=== PATIENT | female | born 1990 | race Caucasian/White ===

== ENCOUNTER 2021-01-23 09:31 | Outpatient (CLI) | payer OTHER, SELFPAY ==
--- NOTE | 2021-01-27 12:35 | WPDHOLTEREM ---
Holter/Event Monitor Holter/Event Monitor Date of procedure: 01/23/21 Holter/Event Procedure: 24 Hr Holter Monitor Indications: Irregular pulse Conclusion: 1. 24 hour holter monitor on 01/23/21. 2. Underlying rhythm is sinus rhythm. HR range 44-158 bpm; average HR 84 bpm. 3. There is 1 premature supraventricular complex. No supraventricular tachycardia. 4. No premature ventricular complex. No ventricular tachycardia. 5. No sinoatrial or atrioventricular blocks. No significant pauses greater than 2 seconds. 6. No symptoms available for correlation.
== END 2021-01-23 09:32 | disposition home or self-care (01) ==
LOC: ANHCARD 09:35
PROVIDERS: PCP Family Medicine; Visit Provider Nurse Practitioner Family
DX: R09.89 Other specified symptoms and signs involving the circulatory and respiratory systems (principal)
CPT/HCPCS: 93225; 93226

== ENCOUNTER 2024-02-20 00:30 | Day surgery (SDC) | payer OTHER, SELFPAY ==
[2024-02-09 14:13] VITALS: BMI 32.5
--- NOTE | 2024-02-09 14:25 | SUR.PREOP ---
Report to the Outpatient Waiting Room, entrance under the green pavilion located off [facility], at time 6:00a.m. on date 02/20/2024. Planned Procedure Time: 7:30a.m. Time changes happen often and if your time is changed the preop area will call you the afternoon before. - You and your visitor will be asked to self-screen and do not enter if you have any COVID symptoms. Please call surgeon if you need to reschedule. - A mask is optional within the hospital at this time. Patients may have clear liquids (water, carbonated beverages, clear teas, apple juice) until 3 hours prior to surgery with a maximum of 20 ounces. - No food from midnight until time of surgery and no smoking. This includes no chewing gum, candy or mints. - Infants may have breast milk until 4 hours before surgery, formula 6 hours prior to surgery. - Children will be allowed to drink immediately following surgery.? If applicable, please bring a bottle or sippy cup to assist with drinking. Juice, water, soda, and popsicles are readily available.? For infants on formula, please bring formula the day of surgery.? Pacifiers are allowed. Take only the following medications with a SIP of water on the morning of surgery: lamotrigine, buspirone, levothyroxine DO NOT STOP ANY OF YOUR OTHER PRESCRIPTION MEDICATIONS PRIOR TO SURGERY EXCEPT THE FOLLOWING Medications to discontinue per physician vitamins and supplements Date to take last dose 02/17/2024 Please no make-up, nail malaysian, hairspray, perfume, deodorant, or body powder the day of surgery.? No jewelry (including any body piercings) or valuables the day of surgery, leave them at home.? Please take a shower or bath the night before, or the morning of, surgery with an antibacterial soap.? Wear comfortable, loose fitting clothing.? Children are encouraged to wear pajamas. - Jewelry must be removed prior to entering the operating room.? Rings and piercings that are not removed may be cut off. - The hospital will not accept responsibility for valuables.? - Please leave all valuables, including medications, at home the day of surgery. If you are going home after surgery, a licensed intermodal truck driver must drive you home.? - NO public transportation without another adult if you receive anesthesia. - We recommend that an adult stay with you for 24 hours following discharge. - We also recommend that you do not drive, make important decision, drink alcoholic beverages, or take any drugs that were not prescribed by your health care provider for at least 24 hours after your discharge time. For Pediatric surgeries, we recommend two adults accompany the child home. Follow any additional instructions given to you from your surgeon. Telephone instructions given to Marilyn Peters and asked if any additional questions and then verbalized understanding. Patient advised to call surgeon office or pre surgery nurse liaison [phone] if any additional questions.
[2024-02-20] VITALS (8 sets, daily range): BP systolic 105–117; BP diastolic 66–76; PULSE 66–114; RESP 10–18; TEMP 36.1–36.2; O2SAT 98–100
[2024-02-20] MEDS: ACETAMINOPHEN 500 MG TABLET 1000 MG PO (06:30)
[2024-02-20] MEDS: LACTATED RINGERS 1,000 ML 30 ML IV CONT ×2 (06:30→08:15)
[2024-02-20] MEDS: KETOROLAC 15 MG/ML VIAL (*BKC) IV PUSH (06:30)
--- NOTE | 2024-02-20 06:34 | P.PNAN_ITS ---
Anes - Initial Pre Proc Eval Procedure: Operation Date: 02/20/24 07:30 Proposed Procedures p Laparoscopic Bilateral Salpingectomy - Judith Zambrano MD Date/Time: 02/20/24 06:34 Surgeon: Judith Zambrano MD Pre Op Diagnosis: Desire Sterilization Patient Data Age: 33 Gender: F Height: 1.63 m Weight: 86 kg Allergies Allergy/AdvReac Type Severity Reaction Status Date / Time heparin Allergy Unknown Unknown Verified 02/09/24 14:03 NSAIDS (Non-Steroidal Allergy Unknown Ulcers Verified 02/09/24 14:03 Anti-Inflamma Home Medications ?Medication ?Instructions ?Recorded ?Confirmed ?Type spironolactone 25 mg tablet 100 mg PO BID 12/23/20 02/09/24 History buspirone 5 mg tablet 10 mg PO BID 04/14/21 02/09/24 History lamotrigine 200 mg tablet 150 mg PO DAILY 05/04/23 02/09/24 History (Lamictal) levothyroxine 50 mcg tablet 75 mcg PO DAILY 05/04/23 02/09/24 History B12 1,000 mcg PO DAILY 02/09/24 02/09/24 History Calcium + Vitamin D 1,200 mg PO DAILY 02/09/24 02/09/24 History ESSENTIAL Daily 2 tablet PO DAILY 02/09/24 02/09/24 History atomoxetine 80 mg capsule 80 mg PO DAILY 02/09/24 02/09/24 History ergocalciferol (vitamin D2) 1,250 1,250 mcg PO DAILY 02/09/24 02/09/24 History mcg (50,000 unit) capsule solifenacin 10 mg tablet 10 mg PO DAILY 02/09/24 02/09/24 History Patient hx anesthesia problems: none Family hx anesthesia problems: none Results Review: All pre-operative results and documents have been reviewed as part of the pre- operative evaluation. ON LICENSE OF [facility] Past Medical History Medical History (Updated 02/20/24 @ 06:34 by Everardo Fuller DO) PCOS (polycystic ovarian syndrome) Hypothyroid Overactive bladder Bipolar 2 disorder Fatigue BMI 36.0-36.9,adult Low hemoglobin Low vitamin B12 level Low vitamin D level BMI 39.0-39.9,adult BMI greater than 40 Family History Family History Grandparent Hypertension Father Hepatitis C Mother Anxiety Cholecystectomy planned Sibling No problems noted. Other Diabetes mellitus Social History Social History (Updated 05/04/23 @ 10:38 by Radha Damon MA) Years smoked: 10 Smoking status: Former smoker Tobacco type: cigarettes Second hand tobacco smoke exposure: No Alcohol intake: former Substance use: former Substance use type: former substance user and amphetamines Last use: 02/08/2022 Do You Feel Safe in your Home?: Yes Lack of Transportation: No Lack of Food: Never True Current Housing: I Have Housing Concerned About Future Housing: No Difficulty Paying Gas/Electric Bills: No Difficulty Paying for Meds: No Currently Unemployed: No Education: Bachelor's Degree Difficulty w/ Childcare or Family Care: No Living arrangements: with family Occupation/Education: student 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[id number] Gender identity (if verbalized by the patient): Female Spiritual care concerns: No Anes - Eval Final PreProcedure Day of Procedure 02/20/24 06:34 Patient weight: obese Heart: regular rate and rhythm Lungs: clear to auscultation Airway: Mallampati scale class 1 Neurological: alert and oriented Last oral intake: >/= 8 hours ASA classification: III Emergent: no Anesthetic plan: proceed Anesthesia type and monitoring: general ETT and standard monitoring Results Review: All pre-operative results and documents have been reviewed as part of the pre- operative evaluation. Informed Consent: The patient's anesthetic plan and its attendant risks and benefits were discussed with the patient/family/POA. Questions were solicited and answers provided to the satisfaction of the patient/family/POA.
[2024-02-20] MEDS: SCOPOLAMINE 1 MG PATCH 1 PATCH TRANSDERM (07:09)
[2024-02-20 07:16] LABS: BEDSIDEPREGUCG Negative (Negative)
--- NOTE | 2024-02-20 07:19 | WPDHPUPDATE1 ---
History and Physical Update Update Date/Time: 02/20/24 07:19 History and Physical has been reviewed, including an updated exam of the patient. There are NO changes in the patient's condition. Risks, benefits, and alternatives have been discussed and questions answered. Patient agrees to proceed with procedure.
--- NOTE | 2024-02-20 07:19 | PM.HPGS ---
History of Present Illness History of Present Illness Consent: Risks, benefits, and alternatives have been discussed and questions answered. Patient agrees to proceed with procedure. Chief complaint: Desire Sterilization Narrative: Marilyn Peters is a 33 year old female who wishes to proceed with permanent sterilization. Patient has no desire for children and alternatives in the past have caused side effects. Risks of infection, bleeding injury to internal organs, and tubal failure were reviewed. Risk of ectopic if tubal failure occurs was reviewed. Patient voices understanding agrees to proceed. Plan to proceed with bilateral laparoscopic salpingectomy. Review of Systems Review of Systems: not repeated day of surgery; patient states no changes in status PMFSH Past Medical History Medical History (Updated 02/20/24 @ 07:22 by Judith Zambrano MD) PCOS (polycystic ovarian syndrome) Hypothyroid Overactive bladder Bipolar 2 disorder Low vitamin B12 level Low vitamin D level Surgical History Surgical History (Updated 02/20/24 @ 07:21 by Judith Zambrano MD) Status post breast augmentation Status post gastric bypass for obesity Family History Family History Grandparent Hypertension Father Hepatitis C Mother Anxiety Cholecystectomy planned Sibling No problems noted. Other Diabetes mellitus Social History Social History (Updated 05/04/23 @ 10:38 by Radha Damon MA) Years smoked: 10 Smoking status: Former smoker Tobacco type: cigarettes Second hand tobacco smoke exposure: No Alcohol intake: former Substance use: former Substance use type: former substance user and amphetamines Last use: 02/08/2022 Do You Feel Safe in your Home?: Yes Lack of Transportation: No Lack of Food: Never True Current Housing: I Have Housing Concerned About Future Housing: No Difficulty Paying Gas/Electric Bills: No Difficulty Paying for Meds: No Currently Unemployed: No Education: Bachelor's Degree Difficulty w/ Childcare or Family Care: No Living arrangements: with family Occupation/Education: student 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[id number] Gender identity (if verbalized by the patient): Female Spiritual care concerns: No Meds Home Medications and Allergies Home Medications ?Medication ?Instructions ?Recorded ?Confirmed ?Type spironolactone 25 mg tablet 100 mg PO BID 12/23/20 02/09/24 History buspirone 5 mg tablet 10 mg PO BID 04/14/21 02/20/24 History lamotrigine 200 mg tablet 150 mg PO DAILY 05/04/23 02/20/24 History (Lamictal) levothyroxine 50 mcg tablet 75 mcg PO DAILY 05/04/23 02/20/24 History B12 1,000 mcg PO DAILY 02/09/24 02/20/24 History Calcium + Vitamin D 1,200 mg PO DAILY 02/09/24 02/20/24 History ESSENTIAL Daily 2 tablet PO DAILY 02/09/24 02/20/24 History atomoxetine 80 mg capsule 80 mg PO DAILY 02/09/24 02/20/24 History ergocalciferol (vitamin D2) 1,250 1,250 mcg PO DAILY 02/09/24 02/20/24 History mcg (50,000 unit) capsule solifenacin 10 mg tablet 10 mg PO DAILY 02/09/24 02/20/24 History Allergies Allergy/AdvReac Type Severity Reaction Status Date / Time heparin Allergy Unknown Unknown Verified 02/20/24 07:11 NSAIDS (Non-Steroidal Allergy Unknown Ulcers,PT Verified 02/20/24 07:15 Anti-Inflamma HAS HX OF GASTRIC BYPASS Vital Signs Vital Signs - 24 hr 02/20/24 07:13 Temperature 96.9 F L Pulse Rate 66 Respiratory Rate 16 Blood Pressure 117/76 Pulse Oximetry 100 Oxygen Delivery Room Air Exam Const: General: healthy appearing and alert Orientation/consciousness: patient oriented x3 Resp: Effort & Inspection: normal respiratory effort : External Female Exam: normal external appearance Speculum Exam - Vagina: normal appearance of the vagina and normal vaginal discharge Speculum Exam - Cervix: normal appearance of the cervix Bimanual exam- vagina & uterus: uterine size normal and consistency normal Bimanual Exam- Adnexa, other: normal adnexae and No adnexal tenderness Neuro: General: patient oriented x3 Assessment and Plan Assessment and plan (1) Encounter for sterilization: Code(s): Z30.2 - Encounter for sterilization Status: Acute Assessment and Plan: plan to proceed with laparoscopic bilateral salpingectomy
--- NOTE | 2024-02-20 08:12 | P.OP_ITS ---
Procedure Note - Detailed Date of Procedure 02/20/24 Pre-op Diagnosis Desire Sterilization Post-op Diagnosis Same Procedure Performed laparoscopic bilateral salpingectomy Surgeon Judith Zambrano MD Anesthesia General Findings adhesions from the right tube to the uterus and the pelvic sidewall; normal-appearing tubes, ovaries, uterus otherwise Description of Procedure The patient is taken to the operating room and placed under anesthesia in the dorsal lithotomy position. She was prepped and draped in the usual sterile fashion. [place] speculum was placed in the vagina and the cervix grasped on the anterior lip with a tenaculum. The acorn manipulator was placed. The bladder was drained with a red rubber catheter. The attention was then turned to the abdomen. A vertical skin incision was made at the base of the umbilicus. The abdomen was tented and the Veress needle placed. Opening patient pressure is 8mmHg. Pneumoperitoneum was obtained to a patient pressure of 16. The short 5mm trocar was too short to reach the fascia. The long 5mm trocar was placed while tenting the abdomen with towel clamps. The patient was placed in Trendelenburg and 2 5mm ports were placed in the left and right lower quadrants 2cm above the symphysis pubis under direct visualization. The blunt probe was used to bring the tubes into visualization. The right tube was noted to be scarred. The left tube was grasped at its fimbriated end and using the LigaSure the mesosalpinx is cauterized and cut. Approximately 2cm from the cornua, the tube was crossclamped and cauterized and cut. The attention was then turned to the right tube. Adhesions are cauterized and cut. The fimbriated end is grasped and using the LigaSure the mesosalpinx was cauterized and cut. Approximately 2cm from the cornua, the tube was crossclamped, cauterized, and cut. The tubes are removed through the lower ports. Good hemostasis was noted at all sites. The pneumoperitoneum was reduced and the ports are all removed. The skin incisions were closed using 3-0 nylon in an interrupted fashion. Sterile bandages were applied. Vaginal instruments are removed. Patient was awakened from anesthesia and taken to recovery in stable condition. Estimated Blood Loss 5 Drains No Packing No Pathology Yes ( Bilateral tubes) Complications No immediate complications Condition Stable Disposition PACU
[2024-02-20] MEDS: fentaNYL CITRATE INJ (*CRX) 100 MCG/2 ML VIAL 25 MCG IV PUSH ×2 (08:38→08:41)
[2024-02-20] MEDS: oxyCODONE HCL (*CRX) 5 MG TAB IR PO (09:30)
--- OUTSIDE RECORDS SUMMARY | 2024-02-25 09:17 | XMS_ITS | Data Portability ---
Author Organization [place] [facility], MAIN OFFICE Address [address] [place] [address] [place] [address] Assessment No assessment recorded. Plan of Treatment Reminders Order Date Submit Date Provider Last Modified By Organization Details Last Modified Time Details Appointments None recorded. Lab TSH + free T4, serum 2022 023 [email or web address] [facility], [address], [place], [address], 3 19:24:[address]/dietiti an referral 2022 023 [email or web address] Not available 3 19:13:10 Procedures None recorded. Surgeries None recorded. Imaging MRI, pituitary, w/wo contrast 2022 023 [email or web address] Not available 3 22:37:39 Medication Orders Synthroid 75 mcg tablet 2022 023 [email or web address] [id number], [address] , [place], [address], 3 12:20:27 Patient TargetsNo targets recorded. Patient InstructionsNo instructions recorded. 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 Medications Name Sig Start Date Stop Date Status Note LastModified by Organization Details LastModified Time buspirone 5 mg tablet active Not Available Not Available Not Available lamotrigine 200 mg tablet active Not Available Not Available No t Available oxybutynin chloride ER 10 mg tablet,extended release 24 hr TAKE 1 TABLET BY MOUTH TWICE A DAY active Not Available Not Available No t Available spironolactone 100 mg tablet TAKE 1 TABLET BY MOUTH TWICE A DAY active Not Available Not Available No t Available sulfamethoxazol e 800 mg-trimethoprim 160 mg tablet TAKE 1 TABLET BY MOUTH TWICE A DAY FOR 7 DAYS active Not Available Not Available No t Available levothyroxine 50 mcg tablet TAKE 1 TABLET BY MOUTH EVERY DAY active Not Available Not Available No t Available Synthroid 75 mcg tablet Take 1 tablet every day by oral route. 2022 active Not Available Not Available Not Avai lable ergocalciferol (vitamin D2) 1,250 mcg (50,000 unit) capsule TAKE 1 CAPSULE BY MOUTH ONE TIME A WEEK active Not Available Not Available No t Available metformin ER 500 mg tablet,extended release 24 hr TAKE 2 TABLETS BY MOUTH TWICE A DAY active Not Available Not Available No t Available solifenacin 5 mg tablet TAKE 1 TABLET BY MOUTH EVERY DAY active Not Available Not Available No t Available Vitals None Recorded Social History None recorded. Functional Status None recorded. Mental Status None recorded. Family History Nothing Reported. Medical History No medical history recorded. Gynecological HistoryNo gynecological history recorded. Obstetrics History GPAL:G 0 P 0 0 0 0 Past Encounters Encounter ID Performer Location Encounter Start Date Encounter Closed Date Diagnosis/Indication Diagnosis SNOMED-CT Code Diagnosis ICD10 Code 1213 ANDREE SHANNON DO MAIN OFFICE [address] [place] [id number] 10/12/2022 08:51:05 10/18/2022 23:16:05 Hypothyroidism 18550015 E03.9 Hyperprolactinemia 09976 2004 E22.1 Reactive hypoglycemia 31 7006 E16.1 Health Concerns Section Related Observation LastModified by Organization Detai ls LastModified Time None Recorded Concern Status LastModified by Organization Details LastModified Time None Recorded Advance Directives Directive None Recorded Payers Encounter Date Sequence Insurance Name Policy Number Policy Tejeda Covered Member ID Tejeda Member ID Guarantor Name 10/12/2022 1 *SELF PAY* Josafat Peters Notes Date Note Type Note Provider Name and Address Organization Details Recorded Time 10/13/19 23 text/htm l Patient is a 32 year old F who presents second opinion regarding Endocrine labs Prolactin and TSH was elevated recently and wants to discuss these for a second opinion. She has been diagnosed with hypothyroidism x several years. She is on Synthroid and takes it on an empty stomach and waits 30 minutes She quit smoking 7 months ago. She does not drink ETOH.She is trying to work out, however the last 3 months- her energy level is going down. Gastric Bypass in 2012. 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 When she gets her hypoglycemia she gets shaky and then she eats chocolate and feels better. October T4 was normalTSH 6.95Prolactin 33.5 She does have nipple discharge and headaches.She is not breast feeding or recent child . No history of . Menstrual cycles: irregular the last few months (prior to that her cycles are regular)She gained 10 lbs, since she quit smoking and she switched to plan based diet.Hair loss Medications:Synthroid 50 mcgLamictal 200 mg x 10 yearsBuspar 5 mg BID x 2 yearsMetformin 500 mg BID for preDMSpironolactoneOxybutynin - recently discharged, switched Solifenacine Fam history: aunt- thyroid Surgical historyGastric Bypass 2012 ANDREE SHANNON, [address], [place], [address], [place] [facility] 10/18/2022 12:23:19 OBGyn Episode No OBEpisode recorded.
--- OUTSIDE RECORDS SUMMARY | 2024-02-25 09:17 | XMS_ITS | Referral Summary ---
Author Organization [facility] Address [address] [place] [address] Care Team Providers Care Huller Operator Name Role Phone Leo Contreras MD Primary Care Provider [phone] Source Comments [facility] Affiliates and Associated Physician Practices is amultiple site organization consisting of ambulatory clinics and hospital sitesin [place], [place], [place] and [place]. This disclosure is being madepursuant to the Care Everywhere program and may not contain all information available regarding this patient. Last updated 17.[facility] Allergies Active Allergy Reactions Criticality Noted Date Comments Heparin Shortness of Breath High 12/25/2017 Medications * Be aware that medications may not be up to date on this document. Alwaysverify current medications with the patient. Medication Sig Dispensed Refills Start Date End Date Status lamoTRIgine (LAMICTAL) 100 MG tablet Take 100 mg by mouth once daily Active levothyroxine (SYNTHROID) 25 MCG tablet Take 25 mcg by mouth daily before breakfast Active amphetamine-dextroamp hetamine (ADDERALL) 20 MG tablet Take 20 mg by mouth every morning Active traZODone (DESYREL) 50 MG tablet Take 50 mg by mouth at bedtime Active ketorolac 0.5% (ACULAR) 0.5 % ophthalmic solution 1 drop 4 times daily as needed 5 mL 12/25/2017 Active Social History Tobacco Use Types Packs/Day Years Used Date Smoking Tobacco: Never Assessed Sex and Gender Information Value Date Recorded Sex Assigned at Not on file Gender Identity Not on file Sexual Orientation Not on file Last Filed Vital Signs Vital Sign Reading Time Taken Comments Blood Pressure 131/73 12/25/2017 7:32 AM CDT Pulse 65 12/25/2017 7:32 AM CDT Temperature 36.7 ??C (98.1 ??F) 12/25/2017 7:32 AM CD T Respiratory Rate 18 12/25/2017 7:32 AM CDT Oxygen Saturation 98% 12/25/2017 7:32 AM CDT Inhaled Oxygen Concentration - - Weight 90.7 kg (200 lb) 12/25/2017 6:34 AM CDT Height 162.6 cm (5' 4 ) 12/25/2017 6:34 AM CDT Body Mass Index 34.33 12/25/2017 6:34 AM CDT Plan of Treatment Not on file Care Teams Huller Operator Relationship Specialty Start Date End Date Leo Contreras MD [address] [place] [address] PCP - General Family Medicine 12/25/17
--- OUTSIDE RECORDS SUMMARY | 2024-02-25 09:17 | XMS_ITS | Encounter Summary ---
Author Organization [facility] Address [address] [place] [address] Care Team Providers Care Freight Elevator Erector Name Role Phone Leo Contreras MD Primary Care Provider [phone] Reason for Visit * Reason Comments Pain Eye left eye pain since she took her contacts out last night, burning after contact removal and pain worsening through the night Encounter Details Date Type Department Care Team (Late st Contact Info) Description 12/25/2017 6:36 AM CDT - 12/25/2017 7:44 AM CDT [facility] [address] [place] [id number] Ismael Chowdhury MD [address] [place] [address] Corneal abrasion of left eye due to contact lens Discharge Disposition: Home or Self Care Social History Tobacco Use Types Packs/Day Years Used Date Smoking Tobacco: Never Assessed Sex and Gender Information Value Date Recorded Sex Assigned at Not on file Gender Identity Not on file Sexual Orientation Not on file documented as of this encounter Last Filed Vital Signs Vital Sign Reading [...] Mass Index 34.33 12/25/2017 6:34 AM CDT documented in this encounter Discharge Instructions * Discharge Instructions* Ismael Chowdhury MD - 12/25/2017 7:34 AM CDT Images from the original note were not included. Corneal Abrasion WHAT YOU NEED TO KNOW: A corneal abrasion is a scratch on the cornea of your eye. The cornea is the clear layer that covers the front of your eye. A small scratch may heal in 1 to 2 days. Deeper or larger scratches may take longer to heal. DISCHARGE INSTRUCTIONS: Call your healthcare provider or business dean if: ?? Your eye pain or vision gets worse. ?? You have yellow or green drainage from your eye. ?? You have questions or concerns about your condition or care. Medicines: ?? Medicines may be given in the form of eyedrops or ointment to help prevent an eye infection. Youmay also be given eyedrops to decrease pain. ?? Take your medicine as directed. Contact your healthcare provider if you think your medicine is not helping or if you have side effects. Tell him or her if you are allergic to any medicine. Keep a list of the medicines, vitamins, and herbs you take. Include the amounts, and when and why you take them. Bring the list or the pill bottles to follow-up visits. Carry your medicine list with you in case of an emergency. Care for your eyes: ?? Get regular eye exams. Get your eyes checked at least every year. ?? Eat healthy foods. Fresh fruits and vegetables that are rich in vitamins A and C may help with your vision. Foods such as sweet potatoes, apricots, and carrots are rich in good nutrients for the eyes. ?? Take care of your contacts or glasses. Store, clean, and use your contacts or glasses as directed. Replace your glasses or contact lenses as often as your healthcare provider suggests. ?? Decrease eye strain. Rest your eyes, especially after you read or sew for long periods of time. Get plenty of sleep at night. Use lights that reduce glare in your home, school, or workplace. ?? Wear dark sunglasses. This will help prevent pain and light sensitivity. Make sure the sunglasses have UVA and UVB protection. This will protect your eyes when you go outside. ?? Use eyedrops safely. If your treatment plan includes eyedrops, it is important to use them as directed. Your provider may give you detailed instructions to follow. The eyedrops may also come with safety instructions. Follow all instructions to help prevent an infection. Do not touch the tip of th e bottle to your eye. Germs from your eye can spread to the medicine bottle. Help prevent corneal abrasions: ?? Remove your contact lenses if your eyes feel dry or irritated. ?? Wash your hands if you need to touch your eyes or your face. ?? Trim your child's fingernails so he or she cannot scratch his or her eye. ?? Wear protective eyewear when you work with chemicals, wood, dust, or metal. ?? Wear protective eyewear when you play sports. ?? Do not wear your contacts for longer than you should. ?? Do not wear colored lenses or lenses with shapes on them. These lenses may cause eye damage and vision loss. ?? Do not wear glitter makeup. Glitter can easily get into your eyes and under contact lenses. ?? Do not sleep with your contacts in. Follow up with your healthcare provider as directed: Write down your questions so you remember to ask them during your visits. ?? Copyright [employer] 2017 Information is for End User's use only and may not be sold, redistributed or otherwise used for commercial purposes. All illustrations and images included in CareNotes?? are the copyrighted property of [employer] or [employer] The above information is an special education educational assistant only. It is not intended as medical advice for individual conditions or treatments. Talk to your doctor, nurse or pharmacist before following any medical regimen to see if it is safe and effective for you. documented in this encounter Medications at Time of Discharge Medication Sig Dispensed Refills Start Date End Date amphetamine-dextroamphe tamine (ADDERALL) 20 MG tablet Take 20 mg by mouth every morning ketorolac 0.5% (ACULAR) 0.5 % ophthalmic solution 1 drop 4 times daily as needed 5 mL 12/25/2017 lamoTRIgine (LAMICTAL) 100 MG tablet Take 100 mg by mouth once daily levothyroxine (SYNTHROID) 25 MCG tablet Take 25 mcg by mouth daily before breakfast traZODone (DESYREL) 50 MG tablet Take 50 mg by mouth at bedtime ciprofloxacin 0.3% (CILOXAN) 0.3 % ophthalmic solution 1 drop every 4 hours while awake for 12 doses 5 mL 12/25/2017 12/28/2017 documented as of this encounter ED Notes * Jeannette Middleton RN - 12/25/2017 7:43 AM CDT Pt verbalized understanding of discharge instructions and prescriptions. note provided to pt. Ptambulated from ED with all personal belongings. * Jeannette Middleton RN - 12/25/2017 7:31 AM CDT at bedside. * Jeannette Middleton RN - 12/25/2017 7:11 AM CDT Pt report received from ELIGIO Brewer. * Ismael Chowdhury MD - 12/25/2017 7:01 AM CDTAssociated Order(s): ED GENERAL PROCEDURE Provider contact with the patient: 12/25/2017 07:01 Marilyn Peters [id number] [facility] EMERGENCY DEPARTMENT History Chief Complaint Patient presents with ??? Pain Eye left eye pain since she took her contacts out last night, burning after contact removal and pain worsening through the night HPI Comments: Marilyn Peters is a 27 y.o.female presenting to the ED complaining of left eye painthat began at 11 PM. She notes at the time she took out her contact and does not know if she scratched it or if her contacts were too dry and took something off my eye . Eye Problem Location: Left eye Quality: Sharp Severity: Mild Onset quality: Sudden Timing: Constant Progression: Unchanged Chronicity: New Relieved by: Nothing Ineffective treatments: None tried No past medical history on file. No past surgical history on file. No family history on file. Social History Social History ??? Marital status: Spouse name: N/A ??? Number of children: N/A ??? Years of education: N/A Occupational History ??? Not on file. Social History Main Topics ??? Smoking status: Not on file ??? Smokeless tobacco: Not on file ??? Alcohol use Not on file ??? Drug use: Not on file ??? Sexual activity: Not on file Other Topics Concern ??? Not on file Social History Narrative ??? No narrative on file Allergies Allergen Reactions ??? Heparin Shortness of Breath Review of Systems Review of Systems Constitutional: Negative. HENT: Negative. Eyes: Positive for pain (left). Respiratory: Negative. Cardiovascular: Negative. Gastrointestinal: Negative. Genitourinary: Negative. Musculoskeletal: Negative. Skin: Negative. Neurological: Negative. Endo/Heme/Allergies: Negative. Psychiatric/Behavioral: Negative. Physical Exam Ht 1.626 m (5' 4 ) Wt 90.7 kg (200 lb) LMP 12/12/2017 (Exact Date) BMI 34.33 kg/m2 Physical Exam Constitutional: She is oriented to person, place, and time. She appears well- developed and well-nourished. No distress. HENT: Head: Normocephalic and atraumatic. Right Ear: External ear normal. Left Ear: External ear normal. Nose: Nose normal. Mouth/Throat: Oropharynx is clear and moist. Eyes: EOM are normal. Pupils are equal, round, and reactive to light. Right eye exhibits no discharge. Left eye exhibits discharge (clear). Left conjunctiva is injected. No scleral icterus. Right eyeexhibits normal extraocular motion and no nystagmus. Left eye exhibits normal extraocular motion and no nystagmus. No nystagmus. Neck: Trachea normal, normal range of motion, full passive range of motion without pain and phonation normal. Neck supple. Normal carotid pulses, no hepatojugular reflux and no JVD present. No tracheal tenderness present. Carotid bruit is not present. No tracheal deviation present. Cardiovascular: Normal rate, regular rhythm, S1 normal, S2 normal, normal heart sounds and intact distal pulses. Exam reveals no gallop, no S3, no S4 and no friction rub. Pulses: Dorsalis pedis pulses are 2+ on the right side, and 2+ on the left side. Posterior tibial pulses are 2+ on the right side, and 2+ on the left side. Pulmonary/Chest: Effort normal and breath sounds normal. No stridor. No respiratory distress. Abdominal: Soft. Bowel sounds are normal. She exhibits no distension, no pulsatile liver, no abdominal bruit and no pulsatile midline mass. There is no hepatosplenomegaly or splenomegaly. There is notenderness. There is no rigidity and no CVA tenderness. Hernia confirmed negative in the ventral area. No pulsatile mass. Musculoskeletal: Normal range of motion. She exhibits no edema or tenderness. Neurological: She is alert and oriented to person, place, and time. She has normal strength and normal reflexes. She displays no atrophy, no tremor and normal reflexes. No cranial nerve deficit or sensory deficit. She exhibits normal muscle tone. She displays no seizure activity. Coordination normal. GCS eye subscore is 4. GCS verbal subscore is 5. GCS motor subscore is 6. She displays no Babinski's sign on the right side. She displays no Babinski's sign on the left side. Skin: Skin is warm and dry. No rash noted. She is not diaphoretic. Psychiatric: She has a normal mood and affect. Her behavior is normal. Nursing note and vitals reviewed. Medications Current Outpatient Prescriptions Medication Sig Dispense Refill ??? lamoTRIgine (LAMICTAL) 100 MG tablet Take 100 mg by mouth once daily ??? levothyroxine (SYNTHROID) 25 MCG tablet Take 25 mcg by mouth daily before breakfast ??? amphetamine-dextroamphetamine (ADDERALL) 20 MG tablet Take 20 mg by mouth every morning ??? traZODone (DESYREL) 50 MG tablet Take 50 mg by mouth at bedtime ??? ciprofloxacin 0.3% (CILOXAN) 0.3 % ophthalmic solution 1 drop every 4 hours while awake for 12 doses 5 mL 0 ??? ketorolac 0.5% (ACULAR) 0.5 % ophthalmic solution 1 drop 4 times daily as needed 5 mL 0 Procedures General Procedure Date/Time: 12/25/2017 7:33 AM Performed by: ISMAEL CHOWDHURY Authorized by: ISMAEL CHOWDHURY Consent: Consent obtained: Verbal Consent given by: Patient Risks discussed: Infection Alternatives discussed: No treatment Post-procedure details: Patient tolerance of procedure: Tolerated well, no immediate complications Comments: Anesthestized patient's left eye with tetracaine. Stained eye with fluorescein. Fluorescein uptake at 1 o'clock. ECG Interpretation ECG Interpretation Lab Interpretation Oxygen Saturation Interpretation The oxygen saturation level is: 98%. The patient was on Room Air for the saturation measurement. Oxygen saturation interpretation is Normal. Intervention(s) used: None. No results found for this visit on 12/25/17. No orders to display Progress Notes 7:01 AM Initial Plan: Patient will be given tetracaine. Patient agrees with plan. 7:32 AM: Further examined patient's eye as documented in procedures. 7:36 AM Rechecked pt -patient resting comfortably and feeling better. I discussed the results of diagnostic studies, my clinical impression, and the plan for further treatment with the patient. Patient agrees with plan and discharge at this time, all questions addressed. Pt is medically stable for discharge at this time. I have given the patient instructions regarding her diagnosis, expectations, follow up, and return precautions. I explained to the patient that emergent conditions may arise and to return to the ER for new, worsening, or any persistent conditions. I've explained the importance of following up with her Primary Care Physician-(or the referral physician listed below) as instructed. The patient verbalized understanding of the discharge instructions. Discharge Vitals: BP 131/73 Pulse 65 Temp 98.1 ??F (36.7 ??C) Resp 18 Ht 1.626 m (5' 4 ) Wt 90.7 kg(200 lb) SpO2 98% BMI 34.33 kg/m2 ED Course ED Course Medical Decision Making I have reviewed the: Previous Chart, Nursing Notes, Vitals. I have interpreted the following results: Oxygen Saturation. MDM: corneal abrasion to left eye with secondary conjunctivitis from contact use. Told not to use contacts. Use cipro eye drops every 4 hours and follow up with eye doctor. RTED if worsening. Orders Placed This Encounter ??? ED GENERAL PROCEDURE ??? DISCONTD: tetracaine 0.5% 0.5 % ophthalmic solution 2 drop ??? ciprofloxacin 0.3% (CILOXAN) 0.3 % ophthalmic solution ??? ketorolac 0.5% (ACULAR) 0.5 % ophthalmic solution ??? DISCONTD: fluorescein (FLUORETS; [id number]) ophthalmic strip ADS Med ??? DISCONTD: fluorescein (FLUORETS; [id number]) ophthalmic strip 1 strip Clinical Impression Final diagnoses: Corneal abrasion of left eye due to contact lens New Medications: Discharge Medication List as of 12/25/2017 7:35 AM START taking these medications Details ciprofloxacin 0.3% (CILOXAN) 0.3 % ophthalmic solution Disp-5 mL, R-0, 1 drop every 4 hours while awake for 12 doses, Print ketorolac 0.5% (ACULAR) 0.5 % ophthalmic solution Disp-5 mL, R-0, 1 drop 4 times daily as needed, Print I have advised the patient to follow-up with: Cuca Degroot MD [address] [address] Disposition: Discharged By signing my name below, I, Aminata Welch, attest that this documentation has been prepared under the direction and in the presence of Dr. Chowdhury. Electronically Signed: Shahriar Michael. 12/25/2017 1:48 PM I, Dr. Chowdhury, personally performed the services described in this documentation. All medical record entries made by the scribe were at my direction and in my presence. I have reviewed the chart and discharge instructions and agree that the record reflects my personal performance and is accurate and complete. , 12/25/2017 1:48 PM * Osman Giordano RN - 12/25/2017 6:46 AM CDT Pt presents with left eye pain since last night. Will continue to monitor documented in this encounter Plan of Treatment Not on file documented as of this encounter Procedures Procedure Name Priority Date/Time Associated Diagnosis Comments ED GENERAL PROCEDURE Routine 12/25/2017 1:48 PM CDT documented in this encounter Results * ED GENERAL PROCEDURE (12/25/2017 1:48 PM CDT) Narrative Ismael Chowdhury MD - 12/25/2017 1:48 PM CDT Ismael Chowdhury MD ? 12/25/2017 ??1:48 PM General Procedure Date/Time: 12/25/2017 7:33 AM Performed by: ISMALE CHOWDHURY Authorized by: ISMAEL CHOWDHURY Consent: ??Consent obtained: ??Verbal ??Consent given by: ??Patient ??Risks discussed: ??Infection ??Alternatives discussed: ??No treatment Post-procedure details: ??Patient tolerance of procedure: ??Tolerated well, no immediate complications Comments: ?? Anesthestized patient's left eye with tetracaine. Stained eye with fluorescein. Fluorescein uptake at 1 o'clock. Ismael Chowdhury MD PROCEDURE/MINOR SURYA GICAL ORDERABLES documented in this encounter Visit Diagnoses Diagnosis Corneal abrasion of left eye due to contact lens documented in this encounter Administered Medications Inactive Administered Medications - up to 3 most recent administrations Medication Order MAR Action Action Date Dose Rate Site fluorescein (FLUORETS; [id number]) ophthalmic strip 1 strip 1 strip, Each Eye, ONCE, 1 dose, On 12/25/17 at 0800 documented in this encounter Active and Recently Administered Medications Times are shown in CDT. Scheduled Medication Order 12/23/2017 12/24/2017 12/25/2017 fluorescein (FLUORETS; [id number]) ophthalmic strip 1 strip 1 strip, Each Eye, ONCE, 1 dose, On 12/25/17 at 0800 tetracaine 0.5% 0.5 % ophthalmic solution 2 drop 2 drop, Left Eye, ONCE, 1 dose, On 12/25/17 at 0730 0730 (Due) documented in this encounter Care Teams Freight Elevator Erector Relationship Specialty Start Date End Date Leo Contreras MD [address] [place] [address] PCP - General Family Medicine 12/25/17 documented as of this encounter
--- OUTSIDE RECORDS SUMMARY | 2024-02-25 09:17 | XMS_ITS | Clinical Summary ---
Author Organization [facility] Utility Funding Address [address] [place] [address] Care Team Providers Care Digital Strategy Specialist Name Role Phone Leo Contreras MD Primary Care Provider [phone] Source Comments [facility] Affiliates and Associated Physician Practices is amultiple site organization consisting of ambulatory clinics and hospital sitesin [place], [place], [place] and [place]. This disclosure is being madepursuant to the Care Everywhere program and may not contain all information available regarding this patient. Last updated 17.[facility] Utility Funding Allergies Active Allergy Reactions Criticality Noted Date [...] 12/25/2017 6:34 AM CDT Plan of Treatment Health Maintenance Due Date Last Done Comments PAP SMEAR 1992 HIV SCREENING 02/20/2007 HEPATITIS C SCREENING 02/16/2010 DTAP/TDAP/TD VACCINES (1 - Tdap) 02/20/2011 HEPATITIS B VACCINE (1 of 3 - 19+ 3-dose series) 02/20/2011 DEPRESSION SCREENING 03/07/2023 COVID-19 VACCINE (1 - 2023-2 5 season) 2023 INFLUENZA VACCINE (#1) 2023 ZOSTER VACCINE (1 of 2) 02/20/2042 HIB VACCINE Aged Out No longer eligi ble based on patient's age to complete this topic HPV VACCINE Aged Out No longer eligi ble based on patient's age to complete this topic MENINGOCOCCAL VACCINE Aged Out No jamila padmaja eligible based on patient's age to complete this topic PNEUMOCOCCAL VACCINE Aged Out No long er eligible based on patient's age to complete this topic Care Teams Digital Strategy Specialist Relationship Specialty Start Date End Date Leo Contreras MD [address] [place] [address] PCP - General Family Medicine 12/25/17
--- OUTSIDE RECORDS SUMMARY | 2024-02-25 09:17 | XMS_ITS | Patient Health Summary ---
Author Organization [facility] Address [address] [place] [address] Care Team Providers Care Water Quality Assistant Name Role Phone Leo Contreras MD Primary Care Provider Note from [facility],non-owned Affiliates and Associated Physician Practices is amultiple site organization consisting of ambulatory clinics and hospital sitesin [place], [place], [place] and [place]. This disclosure is being madepursuant to the Care Everywhere program and may not contain all information available regarding this patient. Last updated 17.[facility] Allergies * Heparin(Shortness of Breath) -High Criticality Medications * Be aware that medications may not be up to date on this document. Alwaysverify current medications with the patient. * lamoTRIgine (LAMICTAL) 100 MG tablet Take 100 mg by mouth once daily * levothyroxine (SYNTHROID) 25 MCG tablet Take 25 mcg by mouth daily before breakfast * amphetamine-dextroamphetamine (ADDERALL) 20 MG tablet Take 20 mg by mouth every morning * traZODone (DESYREL) 50 MG tablet Take 50 mg by mouth at bedtime * ketorolac 0.5% (ACULAR) 0.5 % ophthalmic solution(Started 12/25/2017) 1 drop 4 times daily as needed Social History Tobacco Use Types Packs/Day Years [...] Mass Index 34.33 12/25/2017 6:34 AM CDT Procedures * ED GENERAL PROCEDURE(Performed 12/25/2017) Results * ED GENERAL PROCEDURE (12/25/2017 1:48 PM CDT) Narrative Ismael Chowdhury MD - 12/25/2017 1:48 PM CDT Ismael Chowdhury MD ? 12/25/2017 ??1:48 PM General Procedure Date/Time: 12/25/2017 7:33 AM Performed by: ISMAEL CHOWDHURY Authorized by: ISMAEL CHOWDHURY Consent: ??Consent obtained: ??Verbal ??Consent given by: ??Patient ??Risks discussed: ??Infection ??Alternatives discussed: ??No treatment Post-procedure details: ??Patient tolerance of procedure: ??Tolerated well, no immediate complications Comments: ?? Anesthestized patient's left eye with tetracaine. Stained eye with fluorescein. Fluorescein uptake at 1 o'clock. Ismael Chowdhury MD PROCEDURE/MINOR SURYA GICAL ORDERABLES Care Teams Water Quality Assistant Relationship Specialty Start Date End Date Leo Contreras MD [address] [place] [address] PCP - General Family Medicine 12/25/17
--- OUTSIDE RECORDS SUMMARY | 2024-02-25 09:18 | XMS_ITS | Clinical Summary ---
Author Organization [facility] [address] Address [address] [place] [address] Care Team Providers Care Pipe Fitter Name Role Phone Fly Cheema MD Primary Care Provider Allergies No known active allergies Medications metFORMIN (GLUCOPHAGE) 500 mg tablet Take 1 tablet (500 mg total) by mouth daily with breakfast Active lamoTRIgine (LaMICtal) 200 mg tablet Take 1 tablet (200 mg total) by mouth daily Active busPIRone (BUSPAR) 5 mg tabletIndicatio ns:Generalized Anxiety Disorder Take 1 tablet (5 mg total) by mouth 2 (two) times a day Active spironolactone (ALDACTONE) 100 mg tablet Take 1 tablet (100 mg total) by mouth 2 (two) times a day Active solifenacin (VESIcare) 5 mg tablet Take 1 tablet (5 mg total) by mouth daily Active levothyroxine (SYNTHROID) 75 mcg tablet Take 1 tablet (75 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 She has irregular periods, which may be a manifestation of this, but does not have galactorrhea. Ultimately, I believe that the hypothyroidism with high TSH is the cause of this mild prolactin elevation. Repeat prolactin and TFT's. Hold off on pituitary MRI for now. Further workup to follow if prolactin remains elevated. Other specified hypothyroidism 11/02/2022 Assessment & Plan (11/02/2022 10:27 AM CDT): TSH elevated at last check, so dose of levothyroxine was appropriately increased to 75 mcg daily. Repeat TFT's 4-6 weeks after dose adjustment. PCOS (polycystic ovarian syndrome) 11/02/2022 Assessment & Plan (11/02/2022 10:26 AM CDT): Well managed by [employer] with metformin for metabolic health and spironolactone for hirsutism. She previously did not tolerate hormonal control. Surgical History Surgery Date Site/Laterality Comments COMBINED AUGMENTATION MAMMAPLASTY AND ABDOMINOPLASTY 2013 GASTRIC BYPASS 2012 Medical History Medical History Date Comments Personal history of other en docrine, nutritional and metabolic disease History of thyroid d isease - (Added by TW Conv) Family History Medical History Relation Name Comments Anesthesia problems Other Adverse Reaction To Anesthesia - Aunt (Added by TW Conv) Cancer Other Reported Family History Of Cancer - PGM, PGF (Added by TW Conv) Diabetes Other Diabetes Mellit us - Grandmother, Grandfather, Aunt (Added by TW Conv) Heart disease Other Heart Disease - Grandfather (Added by TW Conv) Hypertension Other Reported Previo us High Blood Pressure - Grandmother, Grandfather, 2 Aunts (Added by TW Conv) Obesity Other Obesity - Aunt, Grandmother (Added by TW Conv) Other Other Blood Disorders - Aunt (Added by TW Conv) Ovarian cancer Other Ovarian Cance r - aunt (Added by TW Conv) Polycystic ovary syndrome Other Po lycystic Ovarian Syndrome - Aunt (Added by TW Conv) Premature Menopause Other Prematur e Menopause - Aunt (Added by TW Conv) Thyroid disease Other Thyroid Diso rder - Aunt (Added by TW Conv) Relation Name Status Comments Other Social History Tobacco Use Types Packs/Day Years Used Date Smoking Tobacco: Former Cigarettes 0.8 15 0 05/22/2009 - 03/12/2022 Smokeless Tobacco: Never Tobacco Cessation:Counseling Given: No Comments Unknown Sex and Gender Information Value Date Recorded Sex Assigned at Not on file 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 Gender Identity Not on file Sexual Orientation Not on file Obstetrics History Last Filed Vital Signs Vital Sign Reading Time Taken Comments Blood Pressure 128/86 11/02/2022 9:46 AM CDT Pulse 69 11/02/2022 9:46 AM CDT Temperature - - Respiratory Rate - - Oxygen Saturation 95% 08/03/2014 7:51 AM CDT Inhaled Oxygen Concentration - - Weight 88.6 kg (195 lb 6.4 oz) 11/02/2022 9:46 A M CDT Height 162.6 cm (5' 4 ) 11/02/2022 9:46 AM CDT Body Mass Index 33.54 11/02/2022 9:46 AM CDT Plan of Treatment Health Maintenance Due Date Last Done Comments Cervical Cancer Screening 1992 Depression Screening 1992 Hepatitis C Screening 1992 Varicella Vaccines (1 of 2 - 13+ 2-dose series) 02/20/2005 Hepatitis B Screening 02/20/2010 Regular Well Visit/Exam 18-64 02/20/2010 Covid-19 Vaccine (2023-2 5 season) 2023 02/03/2021, 06/04/2020, 05/06/2020 Influenza Vaccine (#1) 2023 11/17/2020 DTaP/Tdap/Td Vaccine (2 - Td or Tdap) 11/20/2030 11/20/2020 HPV Vaccines Aged Out No longer eligi ble based on patient's age to complete this topic Pneumococcal vaccine <65 Aged Out No longer eligible based on patient's age to complete this topic [facility] Care Teams Pipe Fitter Relationship Specialty Start Date End Date Fly Cheema MD [address] [facility] [address] [address] PCP - General Endocrinology Diabetes & Metabolism 11/02/22
--- OUTSIDE RECORDS SUMMARY | 2024-02-25 09:18 | XMS_ITS ---
Author Organization [facility] [employer] Address [address] [facility] [address] [place] [address] Care Team Providers Care Communications Field Technician Name Role Phone Ben DEL REAL, Leo Primary Care Provider Neal Fletcher Unavailable [phone] Allergies No Known Allergies REASON FOR VISIT last seen 07.08.23, MIPS BP NORMAL, Depression screening positive Medications Medication SIG (Take, Route, Frequency, Duration) Notes Start Date End Date Status SOLIFENACIN 10 MG TABLET *Reorder from [email or web address] for eRx and Interaction Alerts* 07/08/2023 Active Synthroid 75 MCG Oral 07/08/2023 Ac tive Spironolactone 100 MG Oral 07/08/2023 Active busPIRone HCl 10 MG 1 tablet Oral three times a day for 90 days Active Atomoxetine HCl 10 MG 1 capsule Orally once a day for 90 days total dose of 70 mg daily total dose of 70 mg daily 02/17/2024 08/15/2024 Active Atomoxetine HCl 60 MG 1 capsule in the morning Orally Once a day for 90 days total dose of 70 mg daily total dose of 70 mg daily 01/25/2024 08/15/2024 Active lamoTRIgine 100 MG 1 tablet Oral Once a day for 90 days 07/08/2023 Active Social History Tobacco Use: Social History Observation Description Date Details (start date - stop date) Former Smoker 03/07/2010 - 03/07/2022 Sex Assigned At : Social History Observation Description Sex Assigned At Female Tobacco Control (Standard) Question Answer Notes Tobacco use: Former smoker When did you start smoking? 03/07/2010 When did you stop smoking? 03/07/2022 How long has it been since you last smoked? 1-5 years AUDIT-C (Standard) Question Answer Notes Did you have a drink containing alcohol in the p ast year? No Problems Problem Type SNOMED Code ICD Code Onset Dates Problem Status W/U Status Risk Notes Problem Generalized anxiety disorder (40136407) Generalized anxiety disorder (F41.1) 07/08/19 24 Active confirmed Problem Bipolar disorder (50537696) Bipolar disorder, unspecified (F31.9) 07/08/19 24 Active confirmed Problem Attention deficit hyperactivity disorder (835293677) Attention-deficit hyperactivity disorder, unspecified type (F90.9) 12/08/19 18 Active confirmed Vital Signs Blood pressure systolic 138 mm Hg 02/17/20 24 Blood pressure diastolic 89 mm Hg 024 Heart Rate 81 /min 02/17/2024 Weight 196 lbs 02/17/2024 Weight-kg 88.9 kg 02/17/2024 Height 64.02 in 02/17/2024 Height-cm 162.61 cm 02/17/2024 BMI 33.62 kg/m2 02/17/2024 Encounters Encounter Location Date Provider Diagnosis [facility] [employer] [address] [facility] [address] [place] [address] 02/17/2024 Neal Gregorio Generalized anxiety disorder F41.1 ; Bipolar disorder, unspecified F31.9 and Attention-deficit hyperactivity disorder, unspecified type F90.9 Assessments Encounter Date Diagnosis (ICD Code) Assessment Notes Treatment Notes Treatment Clinical Notes Section Notes 02/17/2024 Generalized anxiety disorder (ICD-10 - F41.1) Anxiety - Assessment: Patient reports increased anxiety on 60 mg of atomoxetine, but prefers it over the 80 mg dose. She experiences an initial jolt of adrenaline and difficulty controlling her heart rate. Patient has reduced crisis work hours and is transitioning to therapy work, maintaining a 4.0 GPA and good caseload at therapy office. - Plan: - Increase BuSpar dosage to 15 mg twice a day, with option to take 10 mg three times a day for flexibility. - Continue monitoring anxiety levels and adjust medications as needed. Atomoxetine Dosage Adjustment for ADHD - Assessment: Patient currently taking 70 mg of atomoxetine daily (60 mg + 10 mg), reports liking the 10 mg at night. Mentions 50 mg may have been the sweet spot but has only been on 60 mg for a few days. - Plan: - Continue current atomoxetine dosage of 70 mg daily, filled on two different days. - Monitor for side effects or changes in anxiety levels. Lamotrigine for bipolar - Assessment: Patient reports continuing to take lamotrigine. - Plan: - Continue current lamotrigine regimen. - Monitor for changes in mood or side effects. Pharmacy Issues - Assessment: Patient mentions potential issues with [facility] care [facility] and may switch to [facility]. Delays in processing atomoxetine prescription reported. - Plan: - Keep current pharmacy for now. - Be prepared to switch to [facility] if issues persist. Upcoming Surgery - Assessment: Patient has scheduled surgery to remove tubes, planning a week of recovery. - Plan: - Ensure patient has enough medication to last through recovery period. - Monitor for complications or changes in mood during recovery. Overall Mental Health and Progress - Assessment: Patient maintaining good academic performance, work-life balance, and gym attendance. On track for [employer] in October 2024. 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 Maintains 3-4 days a week at the gym. - Plan: - Continue monitoring mental health and progress during 6-month appointments. - Encourage self-care and stress management strategies. - Adjust treatment plans as needed based on evolving needs and goals. 02/17/2024 Bipolar disorder, unspecified (ICD-10 - F31.9) Anxiety - Assessment: Patient reports increased anxiety on 60 mg of atomoxetine, but prefers it over the 80 mg dose. She experiences an initial jolt of adrenaline and difficulty controlling her heart rate. Patient has reduced crisis work hours and is transitioning to therapy work, maintaining a 4.0 GPA and good caseload at therapy office. - Plan: - Increase BuSpar dosage to 15 mg twice a day, with option to take 10 mg three times a day for flexibility. - Continue monitoring anxiety levels and adjust medications as needed. Atomoxetine Dosage Adjustment for ADHD - Assessment: Patient currently taking 70 mg of atomoxetine daily (60 mg + 10 mg), reports liking the 10 mg at night. Mentions 50 mg may have been the sweet spot but has only been on 60 mg for a few days. - Plan: - Continue current atomoxetine dosage of 70 mg daily, filled on two different days. - Monitor for side effects or changes in anxiety levels. Lamotrigine for bipolar - Assessment: Patient reports continuing to take lamotrigine. - Plan: - Continue current lamotrigine regimen. - Monitor for changes in mood or side effects. Pharmacy Issues - Assessment: Patient mentions potential issues with [facility] and may switch to [facility]. Delays in processing atomoxetine prescription reported. - Plan: - Keep current pharmacy for now. - Be prepared to switch to [facility] if issues persist. Upcoming Surgery - Assessment: Patient has scheduled surgery to remove tubes, planning a week of recovery. - Plan: - Ensure patient has enough medication to last through recovery period. - Monitor for complications or changes in mood during recovery. Overall Mental Health and Progress - Assessment: Patient maintaining good academic performance, work-life balance, and gym attendance. On track for [employer] in October 2024. 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 Maintains 3-4 days a week at the gym. - Plan: - Continue monitoring mental health and progress during 6-month appointments. - Encourage self-care and stress management strategies. - Adjust treatment plans as needed based on evolving needs and goals. 02/17/2024 Attention-deficit hyperactivity disorder, unspecified type (ICD-10 - F90.9) Anxiety - Assessment: Patient reports increased anxiety on 60 mg of atomoxetine, but prefers it over the 80 mg dose. She experiences an initial jolt of adrenaline and difficulty controlling her heart rate. Patient has reduced crisis work hours and is transitioning to therapy work, maintaining a 4.0 GPA and good caseload at therapy office. - Plan: - Increase BuSpar dosage to 15 mg twice a day, with option to take 10 mg three times a day for flexibility. - Continue monitoring anxiety levels and adjust medications as needed. Atomoxetine Dosage Adjustment for ADHD - Assessment: Patient currently taking 70 mg of atomoxetine daily (60 mg + 10 mg), reports liking the 10 mg at night. Mentions 50 mg may have been the sweet spot but has only been on 60 mg for a few days. - Plan: - Continue current atomoxetine dosage of 70 mg daily, filled on two different days. - Monitor for side effects or changes in anxiety levels. Lamotrigine for bipolar - Assessment: Patient reports continuing to take lamotrigine. - Plan: - Continue current lamotrigine regimen. - Monitor for changes in mood or side effects. Pharmacy Issues - Assessment: Patient mentions potential issues with [facility] and may switch to [facility]. Delays in processing atomoxetine prescription reported. - Plan: - Keep current pharmacy for now. - Be prepared to switch to [facility] if issues persist. Upcoming Surgery - Assessment: Patient has scheduled surgery to remove tubes, planning a week of recovery. - Plan: - Ensure patient has enough medication to last through recovery period. - Monitor for complications or changes in mood during recovery. Overall Mental Health and Progress - Assessment: Patient maintaining good academic performance, work-life balance, and gym attendance. On track for [employer] in October 2024. 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 Maintains 3-4 days a week at the gym. - Plan: - Continue monitoring mental health and progress during 6-month appointments. - Encourage self-care and stress management strategies. - Adjust treatment plans as needed based on evolving needs and goals. Plan Of Treatment Medication Medication Name Sig Start Date Stop Date Notes busPIRone HCl 10 MG 1 tablet Oral three times a day for 90 days Atomoxetine HCl 10 MG 1 capsule Orally o nce a day for 90 days 02/17/2024 08/15/2024 total dose of 70 mg daily Atomoxetine HCl 60 MG 1 capsule in the morning Orally Once a day for 90 days 01/25/2024 08/15/2024 total dose of 70 mg daily lamoTRIgine 100 MG 1 tablet Oral Once a day for 90 days 07/08/2023 Next Appt Details Follow Up: 6 Months, Reason: Provider Name:Neal Gregorio , 08/17/2024 10:00:00 AM, [address], [facility] [address], [place], [address], Progress Notes * SHADIA CHANDOB: 2 (33 yo F)Acc No.[id number]:02/17/2024 Patient:?SHADIA CHAN Provider:?NAEL GREGORIO MD :1990???Age:33 Y???Sex:Female D ate:02/17/2024 Address:[address] [place], [place] [id number] Pcp:Leo Contreras MD Subjective: * Chief Complaints: * ???Last seen 07.07.24MIPS BP NORMALDepression screening positive * HPI: ???Depression Screening:? The note is transcribed using speech recognition software. It is a reflection of a visit with the patient. It might have some inaccuracy, including medication names and transcribing errors, though efforts have been made to correct them. Chief Complaint: Medication adjustment and anxiety management Medication Response: The patient reports that the increase to 60 mg of atomoxetine has been beneficial, but the previous 80 mg dose was too high, causing a decrease in cognitive function and increased anxiety. She is currently taking 70 mg of atomoxetine daily (60 mg plus an additional 10 mg at night) and lamotrigine. The patient experiences an initial jolt of adrenaline and increased anxiety with the current medication. Work and Academic Status: The patient has reduced her crisis work hours due to anxiety and is transitioning to mainly therapy work at [employer] in [place]. 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 Mental Health: The patient has not experienced depression recently. Friends and family have observed her appearing stressed out, which she attributes to anxiety. She reports having little patience for shenanigans and recognizes similar behaviors to when she was on Adderall. Lifestyle Changes: The patient is stepping back from crisis work to manage her stress levels and maintain a more balanced schedule. She has been able to maintain a consistent gym routine of 3 to 4 days per week. Medication Adjustments: The patient would like to increase her BuSpar dosage to help counteract her anxiety symptoms. She plans to continue with her current 6-month appointment schedule and may switch pharmacies due to issues with her current one. Upcoming Procedures: The patient is scheduled for surgery to have her tubes removed and plans to take it easy during the recovery period. ?SHEN-7 (2018 Edition)?Feeling nervous, anxious, or on edge?More than half the days,?Not being able to stop or control worrying?More than half the days,?Worrying too much about different things?Several days,?Trouble relaxing?Several days,?Being so restless that it is hard to sit still?Not at all,?Becoming easily annoyed or irritable?Nearly every day,?Feeling afraid as if something awful might happen?Several days,?If you checked any problems, how difficult have they made it for you to do your work, take care of things at home, or get along with other people??Somewhat difficult.?[place]-Suicide Severity Rating Scale:?Suicide Risk (CSRS-screener)?in the past one month Have you wished you were or wished you could go to sleep and not wake up??No,?in the past one month Have you actually had any thoughts of killing yourself??No.?Depression screening:?PHQ-9?Little interest or pleasure in doing things?Not at all,?Feeling down, depressed, or hopeless?Not at all,?Trouble falling or staying asleep, or sleeping too much?Several days,?Feeling tired or having little energy?More than half the days,?Poor appetite or overeating?Not at all,?Feeling bad about yourself or that you are a failure, or have let yourself or your family down?Not at all,?Trouble concentrating on things, such as reading the newspaper or watching television?Several days,?Moving or speaking so slowly that other people could have noticed; or the opposite, being so fidgety or restless that you have been moving around a lot more than usual?Not at all,?Thoughts that you would be better off or of hurting yourself in some way?Not at all,?Total Score?4,?Interpretation?Minimal Depression.?Intervention?Depression Screening Findings?Positve,?Follow-Up for Depression?Mental health treatment assessment, Patient follow-up to return when and if necessary,?Suicide Risk Assessment Performed? ,?Additional Evaluation for Depression?Psychiatric interview and evaluation,?Name of the standardized tool used for adult depression screening:?Patient Health Questionnaire (PHQ-9).?Past Psychiatric Hospitalizations:?Previous psychiatric hospitalizations?Previous Psychiatric Hospitalization?No.?Past History of Suicidal attempt?Have you ever attempted suicide in the past?No.? * ROS:?Performance Met:?Normal blood pressure reading documented, follow-up not required?(G8783). * Medical History:? * Surgical History:?Cosmetic s urgery Other Breast surgery () * Hospitalization/Major Diagno stic Procedure:?Denies Past Hospitalization * Family History:?Unspecified Relation: Hypothyroidism , Bipolar disorder .?Father: None.?Maternal Aunt: None.?Maternal Uncle: None.?Paternal Aunt: None.?Paternal Uncle: None.?Mother: None.?Paternal Grandfather: None.?Paternal Grandmother: None.?Maternal Grandfather: None.?Maternal Grandmother: None.?Brother: None.?Sister: None.?Son: None.?Daughter: None.? * Social History:?Tobacco Use:?Tobacco Control (Standard)?Tobacco use:?Former smoker,?When did you start smoking??03/07/2010,?When did you stop smoking??03/07/2022,?How long has it been since you last smoked??1-5 years.?Migrated Social History:?Migrated Social History: Alcohol Intake: None 03/09/2021,Tobacco Years: Former smoker 06/23/2022. ???Drug/Alcohol:?Drugs?Have you used drugs other than those for medical reasons in the past 12 months??No.?AUDIT-C (Standard)?Did you have a drink containing alcohol in the past year??No.?Miscellaneous:?Occupation: Counselor. Safety issues?Are there any firearms in the house??No.?Advance Care Planning?Are you your own decision-maker?Yes,?Do you have Power of [employer] for Health or Medical??No.?Social History:?Household?Marital Status:?,?Number of Adults in household:?2,?Number of Children in Household:?0,?Level of Education:?Finished College.? * Medications:?TakingSpironola ctone 100 MG Tablet Oral Synthroid 75 MCG Tablet Oral SOLIFENACIN 10 MG TABLET , Notes to Pharmacist: *Reorder from [employer] for eRx and Interaction Alerts*lamoTRIgine 100 MG Tablet Oral Atomoxetine HCl 60 MG Capsule 1 capsule in the morning Orally Once a day , stop date 02/24/2024usPIRone HCl 10 MG Tablet TAKE 1 TABLET BY MOUTH TWICE A DAY FOR 30 DAYS Oral Taking Spironolactone 100 MG Tablet Oral Taking Synthroid 75 MCG Tablet Oral Taking SOLIFENACIN 10 MG TABLET , Notes to Pharmacist: *Reorder from [facility] for eRx and Interaction Alerts*Taking lamoTRIgine 100 MG Tablet Oral Taking Atomoxetine HCl 60 MG Capsule 1 capsule in the morning Orally Once a day , stop date 02/24/2024Taking busPIRone HCl 10 MG Tablet TAKE 1 TABLET BY MOUTH TWICE A DAY FOR 30 DAYS Oral DiscontinuedAtomoxetine HCl 10 MG Capsule 1 capsule Orally once a day , stop date 04/06/2024lamoTRIgine 200 MG Tablet Oral SOLIFENACIN 5 MG TABLET , Notes to Pharmacist: *Reorder from [facility] for eRx and Interaction Alerts*LaMICtal 200 MG Tablet Oral Ergocalciferol 1.25 MG (86053 UT) Capsule Oral oxyBUTYnin Chloride ER 10 MG Tablet Extended Release 24 Hour Oral Medication List reviewed and reconciled with the patientDiscontinued Atomoxetine HCl 10 MG Capsule 1 capsule Orally once a day , stop date 04/06/2024Discontinued lamoTRIgine 200 MG Tablet Oral Discontinued SOLIFENACIN 5 MG TABLET , Notes to Pharmacist: *Reorder from [facility] for eRx and Interaction Alerts*Discontinued LaMICtal 200 MG Tablet Oral Discontinued Ergocalciferol 1.25 MG (79740 UT) Capsule Oral Discontinued oxyBUTYnin Chloride ER 10 MG Tablet Extended Release 24 Hour Oral Medication List reviewed and reconciled with the patient * Allergies:?N.K.D.A.no[Allerg ies Verified] Objective: * Vitals:?BP:138/89mm Hg, HR:8 1/min, Wt:196lbs, Wt-k.9 kg, Ht: 64.02 in, Ht- cm: 162.61 cm, BMI:33.62Index, Body Surface Area: 2. * Examination: ???General Examination: ???Mental Status Examination: Patient reports increased anxiety with physical manifestations such as a jolt of adrenaline. Describes a significant reduction in cognitive processing and decision-making ability on a higher dose of medication (80 mg atomoxetine). No current depressive symptoms reported; maintains high academic performance and professional functioning. Reports stress and impatience, attributed to high workload and responsibilities. Patient maintains a 4.0 GPA and reports good relationships with therapy clients. Describes feeling stressed and having little patience, which has been noticed by friends and family. Reports maintaining a gym routine 3-4 days per week. Vital Signs: For Vitals see the note. Assessment: * Assessment: 1.?Generalized anxiety disor jasmina - F41.1???2.?Attention-deficit hyperactivity disorder, unspecified type - F90.9???3.?Bipolar disorder, unspecified - F31.9??? Anxiety - Assessment: Patient reports increased anxiety on 60 mg of atomoxetine, but prefers it over the 80 mg dose. She experiences an initial jolt of adrenaline and difficulty controlling her heart rate. Patient has reduced crisis work hours and is transitioning to therapy work, maintaining a 4.0 GPA and good caseload at therapy office. - Plan: - Increase BuSpar dosage to 15 mg twice a day, with option to take 10 mg three times a day for flexibility. - Continue monitoring anxiety levels and adjust medications as needed. Atomoxetine Dosage Adjustment for ADHD - Assessment: Patient currently taking 70 mg of atomoxetine daily (60 mg + 10 mg), reports liking the 10 mg at night. Mentions 50 mg may have been the sweet spot but has only been on 60 mg for a few days. - Plan: - Continue current atomoxetine dosage of 70 mg daily, filled on two different days. - Monitor for side effects or changes in anxiety levels. Lamotrigine for bipolar - Assessment: Patient reports continuing to take lamotrigine. - Plan: - Continue current lamotrigine regimen. - Monitor for changes in mood or side effects. Pharmacy Issues - Assessment: Patient mentions potential issues with [facility] care [facility] and may switch to [facility]. Delays in processing atomoxetine prescription reported. - Plan: - Keep current pharmacy for now. - Be prepared to switch to [facility] if issues persist. Upcoming Surgery - Assessment: Patient has scheduled surgery to remove tubes, planning a week of recovery. - Plan: - Ensure patient has enough medication to last through recovery period. - Monitor for complications or changes in mood during recovery. Overall Mental Health and Progress - Assessment: Patient maintaining good academic performance, work-life balance, and gym attendance. On track for [employer] [employer] in October 2024. 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 Maintains 3-4 days a week at the gym. - Plan: - Continue monitoring mental health and progress during 6-month appointments. - Encourage self-care and stress management strategies. - Adjust treatment plans as needed based on evolving needs and goals. Plan: * Treatment: 2.?Attention-deficit hyperac tivity disorder, unspecified type? Refill Atomoxetine HCl Capsule, 60 MG, 1 capsule in the morning, Orally, Once a day total dose of 70 mg daily, 90 days, 90, Refills 1, Notes to Pharmacist: total dose of 70 mg daily;?Start Atomoxetine HCl Capsule, 10 MG, 1 capsule, Orally, once a day total dose of 70 mg daily, 90 days, 90 Capsule, Refills 1, Notes to Pharmacist: total dose of 70 mg daily.?? * Procedure Codes:?G8783 MASSIMO L BP READING DOC F/U NOT [id number] BEHAV ASSMT W/SCORE & DOCD/STAND INSTRUMENT * Follow Up:?6 Months * Billing Information: * Visit Code:? 68884 OFFICE OUTPATIENT VISIT 25 MINUTES DETAILED HISTORY AND EXAM/MODERATE MEDICAL DECISION MAKING. * Procedure Codes:? G8783 NORMAL BP READING DOC F/U [place] RQR. [id number] BEHAV ASSMT W/SCORE & DOCD/STAND INSTRUMENT. * ISTER TENDER Sign off status: Completed true * Provider:?NEAL GREGORIO MD Date:?02/16 Generated for Florence tejada/Zoila/eTfinessesmitting on:?02/25/2024 09:18 AM UPTWISTER TENDER History and Physical Notes * HPI (History of Present Illness) Category Sub-Category Detail Notes Category Not es Past Psychiatric Hospitalizations Previous psychiatric hospitalizations Previous Psychiatric Hospitalization: No Past History of Suicidal attempt Have yo u ever attempted suicide in the past: No Depression screening PHQ-9 Little inte rest or pleasure in doing things: Not at all Feeling down, depressed, or hopeless: No t at all Trouble falling or staying asleep, or sl eeping too much: Several days Feeling tired or having little energy: M ore than half the days Poor appetite or overeating: Not at all Feeling bad about yourself o r that you are a failure, or have let yourself or your family down: Not at all Trouble concentrating on thi ngs, such as reading the newspaper or watching television: Several days Moving or speaking so slowly that other people could have noticed; or the opposite, being so fidgety or restless that you have been moving around a lot more than usual: Not at all Thoughts that you would be b thomas off or of hurting yourself in some way: Not at all Total Score: 4 Interpretation: Minimal Depression Intervention Depression Screening Findings: Lemuel mcclure Follow-Up for Depression: [facility] treatment assessment, Patient follow-up to return when and if necessary Suicide Risk Assessment Performed: Additional Evaluation for De pression: Psychiatric interview and evaluation Name of the standardized too l used for adult depression screening:: Patient Health Questionnaire (PHQ-9) Depression Screening SHEN-7 (2018 Edition) Feelin g nervous, anxious, or on edge: More than half the days Not being able to stop or control worryi ng: More than half the days Worrying too much about different things : Several days Trouble relaxing: Several days Being so restless that it is hard to sit still: Not at all Becoming easily annoyed or irritable: Ne thu every day Feeling afraid as if something awful crys ht happen: Several days If you checked any problems, how difficult have they made it for you to do your work, take care of things at home, or get along with other people?: Somewhat difficult [place]-Suicide Severity Rating Scale Suicide Risk (CSRS-screener) in the past one month Have you wished you were or wished you could go to sleep and not wake up?: No in the past one month Have y ou actually had any thoughts of killing yourself?: No Examination Category Sub-Category Detail Notes Category Not es General Examination Mental Status Examination: Patient reports increased anxiety with physical manifestations such as a jolt of adrenaline. Describes a significant reduction in cognitive processing and decision-making ability on a higher dose of medication (80 mg atomoxetine). No current depressive symptoms reported; maintains high academic performance and professional functioning. Reports stress and impatience, attributed to high workload and responsibilities. Patient maintains a 4.0 GPA and reports good relationships with therapy clients. Describes feeling stressed and having little patience, which has been noticed by friends and family. Reports maintaining a gym routine 3-4 days per week. Vital Signs: For Vitals see the note
--- OUTSIDE RECORDS SUMMARY | 2024-02-25 09:18 | XMS_ITS ---
Author Organization [facility] [employer] [facility] Address [address] [facility] [address] [facility] [address] [place] [address] Care Team Providers Care Subwarehouse Supervisor Name Role Phone Ben DEL REAL, Leo Primary Care Provider Eliezer Fletcher Unavailable [phone] REASON FOR VISIT New Refill Request Social History Sex Assigned At : Social History Observation Description Sex Assigned At Female Encounters Encounter Location Date Provider Diagnosis [facility] [address] [facility] [address] [facility] [address] [place] [address] 02/07/2024 Eliezer Andrade Plan Of Treatment Next Appt Details Provider Name:Eliezer Andrade , 08/17/2024 10:00:00 AM, [address], [place], [address], Progress Notes * SHADIA CHANDOB: 2 (33 yo F)Acc No.[id number]:02/07/2024 Patient:?SHADIA CHAN :1990???Age:33 Y???Sex:Female Address:[address] [place] [address], [address] * true * Date:? Generated for Printi ng/Faxing/eTransmitting on:?02/25/2024 09:18 AM MILL ROLL REWINDER
--- OUTSIDE RECORDS SUMMARY | 2024-02-25 09:18 | XMS_ITS | Encounter Summary ---
Author Organization [facility] Address [address] [place] [address] Care Team Providers Care Secretary Receptionist Name Role Phone Fly Cheema MD Primary Care Provider Encounter Details Date Type Department Care Team (Late st Contact Info) Description 12/20/2022 [facility] [address] [facility] [address] [place] [address] Ai Conrad Social History Tobacco Use Types Packs/Day Years Used Date Smoking Tobacco: Former Cigarettes 0.8 15 0 05/22/2009 - 03/12/2022 Smokeless Tobacco: Never Comments Unknown Sex and Gender Information Value Date Recorded Sex Assigned at Not on file Legal Sex 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
--- OUTSIDE RECORDS SUMMARY | 2024-02-25 09:18 | XMS_ITS | Encounter Summary ---
Author Organization [facility] Care Team Providers Care Maintenance Service Dispatcher Name Role Phone Unavailable Primary Care Provider Unavailabl e Encounter Details Date Type Department Care Team (Late st Contact Info) Description 04/28/2011 - 04/28/2011 11:59 PM HOLISTIC NUTRITIONIST Hospital Encounter [facility] Winter [place] MD [address] [address] Other and unspecified ovarian cyst Social History Tobacco Use Types Packs/Day Years Used Date Smoking Tobacco: Never Assessed Comments Unknown Sex and Gender Information Value Date Recorded Sex Assigned at Not on file Legal Sex Female 9:11 PM HOLISTIC NUTRITIONIST Gender Identity Not on file Sexual Orientation Not on file documented as of this encounter Plan of Treatment Not on file documented as of this encounter Visit Diagnoses Diagnosis Other and unspecified ovarian cyst documented in this encounter
--- OUTSIDE RECORDS SUMMARY | 2024-02-25 09:18 | XMS_ITS | Encounter Summary ---
Author Organization [facility] Address [address] [place] [address] Care Team Providers Care Business Insight And Analytics Manager Name Role Phone Fly Cheema MD Primary Care Provider Reason for Visit * Reason Comments Preventative Care Encounter Details Date Type Department Care Team (Latest Contact Info) Description 11/02/2022 10:00 AM CDT Office Visit [facility] [address] [facility] [address] [place] [id number] Fly Cheema MD [address] [facility] [address] [place], [place] [id number] Hyperprolactinemia (HCC) (Primary Dx); Other specified hypothyroidism; PCOS (polycystic ovarian syndrome) Social History Tobacco Use Types Packs/Day Years Used Date Smoking Tobacco: Former Cigarettes 0.8 15 0 05/22/2009 - 03/12/2022 Smokeless Tobacco: Never Tobacco Cessation:Counseling Given: No Comments Unknown Sex and Gender Information Value Date Recorded Sex Assigned at Not on file 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 Gender Identity Not on file Sexual Orientation Not on file documented as of this encounter Last Filed Vital Signs Vital Sign Reading Time Taken Comments Blood Pressure 128/86 11/02/2022 9:46 AM CDT Pulse 69 11/02/2022 9:46 AM CDT Temperature - - Respiratory Rate - - Oxygen Saturation - - Inhaled Oxygen Concentration - - Weight 88.6 kg (195 lb 6.4 oz) 11/02/2022 9:46 A M CDT Height 162.6 cm (5' 4 ) 11/02/2022 9:46 AM CDT Body Mass Index 33.54 11/02/2022 9:46 AM CDT documented in this encounter Progress Notes * Fly Cheema MD - 11/02/2022 10:00 AM CDT Office Visit Subjective/Objective Patient ID: Marilyn Peters is a 32 y.o. female. Reason for visit: Establish endocrinology care History of present illness: 32F h/o gastric bypass in 2012 with 140 lb weight loss, PCOS, hypothyroidism, here to establish endocrinologic care. Her main concern today is an elevated prolactin level for which MRI was recommended by a previous provider. She has a history of hypothyroidism diagnosed 15 years ago and has been on levothyroxine since. Reviewed labs from [facility] from 10/06/22 which showed the following: TSH 6.95, FT4 1.19; levothyroxine dose increased from 50 mcg to 75 mcg daily at that time Prolactin 33.5 (elevated) She has had irregular periods for the last few months. They have otherwise been regular. Used to beon hormonal control many years ago, but this caused cognitive and behavioral side effects so this was never restarted. Denies galactorrhea. No headaches. No concerning visual changes. She carries a diagnosis of PCOS as well. She is on metformin and dose was recently decreased to metformin 500 mg daily. Also on spironolactone 100 mg BID for hirsutism. Still has to mechanically remove hair every day. Reviewed PCOS-related labs from 10/06/22: 17-OH (normal) Testosterone 35 (normal) DHEA-S 287 (normal) A1c 5.2% B12 normal Insulin normal Sees psychiatrist who will be tapering her Lamictal for bipolar disorder type 2. She is also on Buspar 5 mg BID. Past Medical History: Diagnosis Date Personal history of other endocrine, nutritional and metabolic disease History of thyroid disease - (Added by TW Conv) Past Surgical History: Procedure Laterality Date COMBINED AUGMENTATION MAMMAPLASTY AND ABDOMINOPLASTY 2013 GASTRIC BYPASS 2012 Patient Active Problem List Diagnosis Hyperprolactinemia (HCC) Other specified hypothyroidism PCOS (polycystic ovarian syndrome) Current Outpatient Medications: busPIRone, 5 mg, oral, BID lamoTRIgine, 200 mg, oral, Daily metFORMIN, 500 mg, oral, Daily with breakfast solifenacin, 5 mg, oral, Daily spironolactone, 100 mg, oral, BID No Known Allergies Family History Problem Relation Age of Onset Cancer Other Reported Family History Of Cancer - PGM, PGF (Added by TW Conv) Hypertension Other Reported Previous High Blood Pressure - Grandmother, Grandfather, 2 Aunts (Added by TW Conv) Thyroid disease Other Thyroid Disorder - Aunt (Added by TW Conv) Ovarian cancer Other Ovarian Cancer - aunt (Added by TW Conv) Heart disease Other Heart Disease - Grandfather (Added by TW Conv) Diabetes Other Diabetes Mellitus - Grandmother, Grandfather, Aunt (Added by TW Conv) Obesity Other Obesity - Aunt, Grandmother (Added by TW Conv) Anesthesia problems Other Adverse Reaction To Anesthesia - Aunt (Added by TW Conv) Polycystic ovary syndrome Other Polycystic Ovarian Syndrome - Aunt (Added by TW Conv) Other Other Blood Disorders - Aunt (Added by TW Conv) Premature Menopause Other Premature Menopause - Aunt (Added by TW Conv) Social History Tobacco Use Smoking status: Former Packs/day: 0.75 Years: 15.00 Additional pack years: 0.00 Total pack years: 11.25 Types: Cigarettes Start date: 05/22/2009 Quit date: 03/12/2022 Years since quittin.6 Smokeless tobacco: Never Substance and Sexual Activity Drug use: Never Sexual activity: None Alcohol Use: Not on file Immunization History Administered Date(s) Administered Moderna SARS-CoV-2 Monovalent Vaccination (12+ YRS) 05/06/2020, 06/04/2020, 02/03/2021 Health Maintenance Topics with due status: Overdue Topic Date Due Depression Screening-PHQ Never done Cervical Cancer Screening-Pap and HPV Never done Varicella Vaccines Never done Regular Well Visit/Exam 18-64 Never done Covid-19 Vaccine 03/31/2021 Health Maintenance Topics with due status: Due Soon Topic Date Due Influenza Vaccine 11/05/2022 Health Maintenance Topics with due status: Not Due Topic Last Completion Date DTaP/Tdap/Td Vaccine 11/20/2020 Health Maintenance Topics with due status: Aged Out Topic Date Due Pneumococcal vaccine <65 Aged Out Review of Systems: Negative except as per HPI Physical Exam: Patient Vital Signs for the past 24 hrs: BP Pulse Height Weight 11/02/22 0946 128/86 69 162.6 cm (5' 4 ) 88.6 kg (195 lb 6.4 oz) Wt Readings from Last 3 Encounters: 11/02/22 88.6 kg (195 lb 6.4 oz) GENERAL: Well-appearing, well-nourished, no acute distress. HEENT: NCAT, anicteric sclerae. EOMI. NECK: Supple. No goiter or palpable thyroid nodules. PULM: Normal respiratory effort. Lungs clear to auscultation bilaterally without rales, wheezes, orrhonchi. CV: RRR, normal S1 and S2, no m/g/r. No jugular venous distention. No lower extremity edema. ABD: Soft, nontender, nondistended. NABS. MSK: No joint swelling, redness, or pain. SKIN: No significant acne. No visible terminal hairs on face. NEURO: Alert and oriented to person, place, time, and situation. No tremor of outstretched hands. Visual jackson full bilaterally. PSYCH: Euthymic. Good insight and judgment. Labs and other data: Assessment/Plan Diagnoses and all orders for this visit: Hyperprolactinemia (HCC) (E22.1) (Primary) Assessment & Plan: Mild. She has irregular periods, which may be a manifestation of this, but does not have galactorrhea. Ultimately, I believe that the hypothyroidism with high TSH is the cause of this mild prolactin elevation. Repeat prolactin and TFT's. Hold off on pituitary MRI for now. Further workup to follow if prolactin remains elevated. Orders: - Prolactin; Future Other specified hypothyroidism (E03.8) Assessment & Plan: TSH elevated at last check, so dose of levothyroxine was appropriately increased to 75 mcg daily. Repeat TFT's 4-6 weeks after dose adjustment. Orders: - TSH reflex to free T4; Future PCOS (polycystic ovarian syndrome) (E28.2) Assessment & Plan: Well managed by [facility] with metformin for metabolic health and spironolactone for hirsutism. She previously did not tolerate hormonal control. Orders: - Basic metabolic panel; Future - Lipid panel; Future Fly Cheema MD Endocrinology/Internal Medicine [facility]) documented in this encounter Miscellaneous Notes * Result Encounter Note - Fly Cheema MD - 11/16/2022 4:08 PM CDT Prolactin normal now that the thyroid levels are in the normal range. No further workup is needed. Keep taking all medications at the current doses. * Assessment & Plan Note - Fly Cheema MD - 11/02/2022 10:29 AM CDT Associated Problem(s): Hyperprolactinemia (HCC) Mild. She has irregular periods, which may be a manifestation of this, but does not have galactorrhea. Ultimately, I believe that the hypothyroidism with high TSH is the cause of this mild prolactin elevation. Repeat prolactin and TFT's. Hold off on pituitary MRI for now. Further workup to follow if prolactin remains elevated. * Assessment & Plan Note - Fly Cheema MD - 11/02/2022 10:27 AM CDT Associated Problem(s): Other specified hypothyroidism TSH elevated at last check, so dose of levothyroxine was appropriately increased to 75 mcg daily. Repeat TFT's 4-6 weeks after dose adjustment. * Assessment & Plan Note - Fly Cheema MD - 11/02/2022 10:26 AM CDT Associated Problem(s): PCOS (polycystic ovarian syndrome) Well managed by [facility] with metformin for metabolic health and spironolactone for hirsutism. She previously did not tolerate hormonal control. documented in this encounter Plan of Treatment Not on file documented as of this encounter Procedures Procedure Name Priority Date/Time Associated Diagnosis Comments THYROID FUNCTION CASCADE Routine 11/15/2022 8:58 AM CDT Other specified hypothyroidism PROLACTIN Routine 11/15/2022 8:58 AM CDT Hyperprolactinemia (HCC) LIPID PANEL Routine 11/15/2022 8:58 AM CDT PCOS (polycystic ovarian syndrome) BASIC METABOLIC PANEL Routine 11/15/2022 8:58 AM CDT PCOS (polycystic ovarian syndrome) documented in this encounter Results * Lipid panel (11/15/2022 8:58 AM CDT) Cholesterol 136 100 - 199 mg/dL [facility] - 01 Triglycerides 68 0 - 149 mg/dL [facility] - 01 HDL Cholesterol 50 >39 mg/dL [facility] - 01 VLDL 14 5 - 40 mg/dL [facility] - 01 LDL, calculated 72 0 - 99 mg/dL [facility] - 01 Blood 11/15/2022 8:58 AM CDT 11/15/2022 Narrative [facility] - 11/16/2022 4:08 AM CDT Performed at: ??01 - [facility] [address] ??[id number] Customer Account Technician: Horacio Garcia PhD, Phone: ??[phone] Fly Cheema MD LAB BLOOD ORDERABLES Fi nal Result [facility] - [facility] * Basic metabolic panel (11/15/2022 8:58 AM CDT) Glucose 83 70 - 99 mg/dL [facility] - 01 BUN 12 6 - 20 mg/dL [facility] - 01 Creatinine, Serum 0.86 0.57 - 1.00 mg/dL [facility] - 01 eGFR 93 >59 mL/min/1.73 [facility] - 01 BUN/creat ratio 14 9 - 23 [facility] - 01 Sodium 140 134 - 144 mmol/L [facility] - 01 Potassium, sr 4.0 3.5 - 5.2 mmol/L [facility] - 01 Chloride 101 96 - 106 mmol/L [facility] - 01 CO2 25 20 - 29 mmol/L [facility] - 01 Calcium 9.3 8.7 - 10.2 mg/dL [facility] - 01 Blood 11/15/2022 8:58 AM CDT 11/15/2022 Narrative [facility] - 11/16/2022 4:08 AM CDT Performed at: ??01 - [facility] ??[id number] Customer Account Technician: Horacio Garcia PhD, Phone: ??[phone] Fly Cheema MD LAB BLOOD ORDERABLES Fi nal Result Performing Organization Address [facility] de Phone Number [facility] * TSH reflex to free T4 (11/15/2022 8:58 AM CDT) TSH 4.160 0.450 - 4.500 uIU/mL [facility] - 01 Comment: No apparent thyroid disorder. Additional testing not indicated. In rare instances, Secondary Hypothyroidism as well as Subclinical Hypothyroidism have been reported in some patients with normal TSH values. Blood 11/15/2022 8:58 AM CDT 11/15/2022 Narrative [facility] - 11/16/2022 4:08 AM CDT Performed at: ?? - [facility] ??[id number] Customer Account Technician: Horacio Garcia PhD, Phone: ??[phone] Fly Cheema MD LAB BLOOD ORDERABLES Fi nal Result Performing Organization Address [facility] de Phone Number [facility] - * Prolactin (11/15/2022 8:58 AM CDT) Prolactin 22.7 4.8 - 23.3 ng/mL [facility] - 01 Blood 11/15/2022 8:58 AM CDT 11/15/2022 Narrative [facility] - 11/16/2022 4:08 AM CDT Performed at: ??01 - [facility] ??[id number] Customer Account Technician: Horacio Garcia PhD, Phone: ??[phone] Fly Cheema MD LAB BLOOD ORDERABLES Fi nal Result [facility] - 01 documented in this encounter Visit Diagnoses Diagnosis Hyperprolactinemia (HCC)- Primary Other and unspecified anterior pituitary hyperfunction Other specified hypothyroidism PCOS (polycystic ovarian syndrome) Polycystic ovaries documented in this encounter Discontinued Medications Medication Sig Discontinue Reason Start Date End Da te metFORMIN (FORTAMET) 1,000 mg 24 hr tablet Take 1 tablet (1,000 mg total) by mouth daily with breakfast 11/02/2022 metFORMIN (FORTAMET) 1,000 mg 24 hr tablet Take 1 tablet (1,000 mg total) by mouth daily with breakfast 11/02/2022 documented as of this encounter Historical Medications * This list may reflect changes made after this encounter. solifenacin (VESIcare) 5 mg tablet Take 1 tablet (5 mg total) by mouth daily spironolactone (ALDACTONE) 100 mg tablet Take 1 tablet (100 mg total) by mouth 2 (two) times a day busPIRone (BUSPAR) 5 mg tabletIndication s:Generalized Anxiety Disorder Take 1 tablet (5 mg total) by mouth 2 (two) times a day lamoTRIgine (LaMICtal) 200 mg tablet Take 1 tablet (200 mg total) by mouth daily metFORMIN (GLUCOPHAGE) 500 mg tablet Take 1 tablet (500 mg total) by mouth daily with breakfast metFORMIN (FORTAMET) 1,000 mg 24 hr tablet Take 1 tablet (1,000 mg total) by mouth daily with breakfast 3 added in this encounter Care Teams Business Insight And Analytics Manager Relationship Specialty Start Date End Date Fly Cheema MD [address] [facility] [address] [address] PCP - General Endocrinology Diabetes & Metabolism 11/02/22 documented as of this encounter
--- OUTSIDE RECORDS SUMMARY | 2024-02-25 09:18 | XMS_ITS | Encounter Summary ---
Author Organization [facility] Address [address] [place] [address] Care Team Providers Care Chlorination Operator Name Role Phone Fly Cheema MD Primary Care Provider Encounter Details Date Type Department Care Team (Late st Contact Info) Description 11/17/2022 [facility] [address] [facility] [address] [place] [address] Ai Conrad Social History Tobacco Use Types Packs/Day Years Used Date Smoking Tobacco: Former Cigarettes 0.8 15 0 05/22/2009 - 03/12/2022 Smokeless Tobacco: Never Comments Unknown Sex and Gender Information Value Date Recorded Sex Assigned at Not on file 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 * Telephone Encounter - Ai Conrad - 11/17/2022 9:26 AM CDT ----- Message from Fly Cheema MD sent at 11/16/2022 4:08 PM CDT ----- Prolactin normal now that the thyroid levels are in the normal range. No further workup is needed. Keep taking all medications at the current doses. documented in this encounter Plan of Treatment Not on file documented as of this encounter Visit Diagnoses Not on filedocumented in this encounter Care Teams Chlorination Operator Relationship Specialty Start Date End Date Fly Cheema MD [address] [address] PCP - General Endocrinology Diabetes & Metabolism 11/02/22 documented as of this encounter
--- OUTSIDE RECORDS SUMMARY | 2024-02-25 09:18 | XMS_ITS | Encounter Summary ---
Author Organization [facility] Facility Care Team Providers Care Deaf Teacher Name Role Phone Unavailable Primary Care Provider Unavailabl e Encounter Details Date Type Department Care Team (Latest Contact Info) Description 08/02/2014 5:30 AM CDT - 08/03/2014 10:55 AM CDT Hospital Encounter [facility] Plastic surgery for unacceptable cosmetic appearance; Weight loss; Bariatric surgery status; Hypertrophic and atrophic condition of skin; Benign neoplasm of skin of other and unspecified parts of face Social History Tobacco Use Types Packs/Day Years Used Date Smoking Tobacco: Never Assessed Comments Unknown Sex and Gender Information Value Date Recorded Sex Assigned at Not on file 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 Gender Identity Not on file Sexual Orientation Not on file documented as of this encounter Last Filed Vital Signs Vital Sign Reading Time Taken Comments Blood Pressure 155/79 08/03/2014 7:51 AM CDT Pulse 69 08/03/2014 7:51 AM CDT Temperature - - Respiratory Rate - - Oxygen Saturation 95% 08/03/2014 7:51 AM CDT Inhaled Oxygen Concentration - - Weight 83 kg (182 lb 15.7 oz) 08/02/2014 1:02 PM CDT Height 162.6 cm (5' 4 ) 08/02/2014 1:02 PM CDT Body Mass Index 31.41 08/02/2014 1:02 PM CDT documented in this encounter Miscellaneous Notes * Op Note - Provider, MD Dixie - 08/02/2014 12:00 AM CDT Patient: SHADIA PETERS Account: [id number] Room No: 1456-A : 1990 Proc. Date: 08/02/2014 Surgeon: JIMMIE ROBERTS M.D. Admit Date: 08/02/2014 Disch. Date: 08/03/2014 Patient Type: SDS Attending Physician: Jimmie Roberts MD Sulfide Head Operator: JAIRON Elizabeth Preoperative Diagnosis: Cosmetic procedure. Postoperative Diagnosis: Cosmetic procedure. Procedure Performed: 1. Bilateral brachioplasty. 2. Bilateral back roll excisions. 3. Excision of right cheek mole. 4. Bilateral vertical mastopexy augmentation with placement of smooth round silicone gel implants. Complications: None. Estimated Blood Loss: 150 mL. Indication: This is a 24-year-old female, status post gastric bypass with significant weight loss. The patient was interested in having the redundant skin to her arm and the back rolls addressed. She was also interested in having a mole, that was benign and there for several years, removed from her right medial cheek near the nasolabial crease as well as having a vertical mastopexy augmentation. She sized in the office wanted implants in the 400 mL range if possible. The patient was deemed an excellent candidate for the procedure. Findings: Patient underwent the vertical mastopexy augmentation. She had Sientra 410 mL moderate profile implants placed. The serial number for the left implant was [id number], serial number for the right implant was [id number]. Patient was noted to have very nice symmetry on the table. She also underwent the brachioplasty procedure as well as the excision of her mole, which was uneventful. Her back roll excision also was uneventful. She was noted to have 418 g removed the right pack, 462 from the left back, 158 g from the right arm and 169 from the left arm. Procedure: Patient was brought into the operating room. Placed in supine position. She was intubated and administered general anesthesia. A Carolina catheter was placed. Sequential compression devices were applied to her feet. She was placed into a prone position with chest and hip protectors. The arms were placed in abducted position, well padded, and secured to the armboard. Her back and buttock region were prepped and draped in standard sterile fashion. After this was performed, approximately 10 mL of 0.5 percent lidocaine with epinephrine was injected along the back rolls. The upper back roll incision was performed with a 15 C blade. Dissection was carried down from the level of the fascia of the back. Dissection was carried out in a caudal position to the lower marking. Tailor tacking method was used to excise the redundant skin. Hemostasis obtained with cautery. The pocket was irrigated with a triple antibiotic solution. After numerous irrigations, hemostasis was once again obtained with electrocautery. The 7-Palauan round drains were placed inside the pocket and exited through a stab incision in the lateral flank region and secured to the skin using 2-0 silk suture. Numerous 2-0 PDS sutures were used to approximate the fascia in an interrupted fashion. The 3-0 Monocryl sutures were used to approximate the dermis in interrupted fashion, skin edges in running subcuticular fashion. Sterile dressings were placed on top. She was carefully placed in the supine position. Her arms were affixed to the armboards. Pads were placed underneath her elbows. Pillows were placed underneath her knees and pads were placed underneath her heels. Her chest was prepped and draped in standard sterile fashion. Lidocaine 10 mL of 0.5 percent with epinephrine was injected into each breast. An incision was made along the right lateral extent of the breast just above the inframammary crease along the vertical mastopexy markings. Dissection was carried down to the level of the chest wall. A subglandular pocket was elevated. The lateral edge of the pectoral's muscle identified. A subpectoral pocket was elevated. The muscle was disinserted from the inferior and inferomedial attachments creating a dual plane procedure. The patient had a 385 mL moderate profile sizer placed in the pocket and filled to 410 mL. On the contralateral side the nipple was cut to 36 mm circumference. A circumareolar mastopexy was performed by de epithelializing the pedicle. Electrocautery was used to score through the lower border of the pedicle leaving a 5 mm cuff on the outer edge. Dissection was carried down to the level of the chest wall. A subglandular pocket was elevated in the inframammary crease. After the subpectoral pocket was dissected and the sizer was placed inside the patient, the patient was placed in upright position and 410 mL were placed into the sizer. In upright position she was noted to have very nice symmetry in terms of size and shape of her breasts. She was placed back down to supine position. Her right breast had the areola cut to 36 mm in circumference. The outer edge of the mastopexy markings were incised. The dermis was scored around the vertical mastopexy dermis leaving a 5 mm cuff on the outer edge. The sizer was removed. The pocket was irrigated with a triple antibiotic solution containing 1 g of Ancef, 50,000 units of bacitracin, 80 mg gentamicin, and 500 mL normal saline. After copious amounts of irrigation, hemostasis was obtained with electrocautery. The surgeon's gloves were changed. The pocket was irrigated with straight Betadine solution and the Sientra 410 mL moderate profile implant was placed in the right pocket. PDS 2-0 sutures were used to approximate the medial lateral pillars of breast tissue. A [place]-Cral suture on a Sharad needle was used to perform a pursestring closure around the areola. Several 3-0 and 4-0 Monocryl sutures were used to approximate the dermis after 2-0 PDS sutures were used to approximate the breast tissue in an interrupted fashion. A 4-0 Monocryl suture was used to approximate the skin edges in a running subcuticular fashion. Similar procedure was performed on the contralateral side. However, only a circumareolar mastopexy was performed on the left. That was all that was needed. Attention was then turned towards the arms. The arms were re-prepped and redraped. The arm excision sites were injected with 0.5 percent lidocaine with epinephrine solution. The upper brachioplasty incision was carried out with a 15 blade knife. Dissection was carried down to the level of the lower marking in a plane just above the muscle fascia. Hemostasis obtained electrocautery. Tailor tacking method was used to excise redundant skin. The incision originally was made from the medial epicondyle to the anterior axillary crease. Hemostasis was once again obtained with electrocautery. The pocket was irrigated with triple antibiotic solution. A 7 mm Maximino drain was placed on top of the fascia, passed out through stab incision in the anterior axillary region, and secured to the skin using 2-0 silk suture. PDS 2-0 sutures were used to approximate the fascia in interrupted fashion and 3-0 Monocryl sutures were used to approximate the dermis in interrupted fashion, skin edges in running subcuticular fashion. A similar procedure was performed on the contralateral side. Sterile dressings were placed on top. The right nasal labial mole, which measure approximately 5 x 5 mm, was injected with 0.5 mL of 0.5 percent lidocaine with epinephrine. It was excised with a 15 C blade in elliptical fashion. Hemostasis was obtained with electrocautery. A single 5-0 Monocryl suture was placed to approximate the dermis and several 6-0 Prolene sutures were used to approximate the skin edges in an interrupted fashion. Sterile dressings were placed on top. She has awakened, extubated, and brought to the recovery room in stable condition. Sponge counts and needle counts were accurate. JIMMIE ROBERTS M.D. Dictated by: JIMMIE ROBERTS M.D. CP/mt TD: 08/03/2014 14:36 Electronically Authenticated by: Jimmie Roberts MD On 08/10/2014 09:52 AM CDT documented in this encounter Plan of Treatment Not on file documented as of this encounter Procedures Procedure Name Priority Date/Time Associated Diagnosis Comments DISCHARGE LABORATORY CUMULATIVE REPORT 08/03/2014 URINE COTININE Routine 08/02/2014 6:00 AM CDT URINE CHORIONIC GONADOTROPIN (HCG) Routine 08/02/2014 6:00 AM CDT documented in this encounter Results * DISCHARGE LABORATORY CUMULATIVE REPORT (08/03/2014) Narrative 08/03/2014 Ordered by an unspecified provider. us Historical Provider LAB BLOOD ORDERABLES Yudelka l Result * Urine cotinine (08/02/2014 6:00 AM CDT) Cotinine, ur Negative Negative HISTORI HOANG RESULTS Urine 08/02/2014 6:00 AM CDT Jimmie Roberts MD LAB BLOOD ORDERABLES F inal Result HISTORICAL RESULTS * Urine chorionic gonadotropin (HCG) (08/02/2014 6:00 AM CDT) HCG, ur Negative Negative HISTORICAL RESULTS Urine 08/02/2014 6:00 AM CDT us Jimmie Roberts MD LAB BLOOD ORDERABLES F inal Result HISTORICAL RESULTS documented in this encounter Visit Diagnoses Diagnosis Plastic surgery for unacceptable cosmetic appearance Weight loss Loss of weight Bariatric surgery status Hypertrophic and atrophic condition of skin Unspecified hypertrophic and atrophic condition of skin Benign neoplasm of skin of other and unspecified parts of face documented in this encounter
--- OUTSIDE RECORDS SUMMARY | 2024-02-25 09:18 | XMS_ITS | Referral Summary ---
Author Organization [facility] [address] [place] [address] Care Team Providers Care Wood Pole Treater Name Role Phone Fly Cheema MD Primary [...] 1 tablet (75 mcg total) by mouth quality process engineer before breakfast 90 tablet 3 3 Active [...] (11/02/2022 10:26 AM CDT): Well managed by [facility] [facility] with metformin for metabolic health and spironolactone for hirsutism. She previously did not tolerate hormonal control. 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
--- OUTSIDE RECORDS SUMMARY | 2024-02-25 09:18 | XMS_ITS ---
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 04/05/2024 Active Social History Sex Assigned At : Social History Observation Description Sex Assigned At Female Encounters Encounter Location Date Provider Diagnosis [facility] [employer] [place] [id number] [facility] [address] [address] 02/20/2024 Eliezer Andrade Generalized anxiety disorder F41.1 Assessments Encounter Date Diagnosis (ICD Code) Assessment Notes Treatment Notes Treatment Clinical Notes Section Notes 02/20/2024 Generalized anxiety disorder (ICD-10 - F41.1) Plan Of Treatment Medication Medication Name Sig Start Date Stop Date Notes lamoTRIgine 100 MG 1.5 tablet Oral Once a day for 90 days 04/05/2024 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 Refill lamoTRIgine Tablet, 100 MG, Oral, 135 Tablet, 1.5 tablet, Once a day, 90 days, Refills=0 Subjective: * Chief Complaints: * ???Lamotrigine Dose * Medical History:? * Surgical History:? * Hospitalization/Major Diagno stic Procedure:? * Medications:? Objective: * Vitals:? * Physical Examination:? Assessment: * Assessment: 1.?Generalized anxiety disor jasmina - F41.1??? Plan: * Treatment: * Procedure Codes:? * true * Date:? Generated for Florence tejada/Zoila/Catalinaitting on:?02/25/2024 09:18 AM CLAM TREADER
== END 2024-02-20 10:15 | disposition home or self-care (01) ==
PROVIDERS: PCP Family Medicine; Visit Provider Obstetrics & Gynecology Gynecology
PROC: (CPT 49320; principal; 2024-02-20 07:30)
DX: Z30.2 Encounter for sterilization (principal); N73.6 Female pelvic peritoneal adhesions (postinfective); E03.9 Hypothyroidism, unspecified; E53.8 Deficiency of other specified B group vitamins; E55.9 Vitamin D deficiency, unspecified; E28.2 Polycystic ovarian syndrome; N32.81 Overactive bladder; F31.81 Bipolar II disorder; G89.18 Other acute postprocedural pain; D64.9 Anemia, unspecified; E66.9 Obesity, unspecified; Z68.33 Body mass index [BMI] 33.0-33.9, adult; Z98.890 Other specified postprocedural states; Z98.84 Bariatric surgery status; Z87.891 Personal history of nicotine dependence
CPT/HCPCS: 58661; 88302; A9270; J0330; J1100; J1885; J2250; J2405; J2704; J3010; J7120

== ENCOUNTER 2024-08-09 11:19 | Outpatient (CLI) | payer OTHER, SELFPAY ==
--- NOTE | ~2024-08-09 | XR_ITS ---
XR hip BI wo pelvis 08/09/2024 11:41 Indication: Bilateral hip pain Procedure: 2 views each hip Comparison: No prior studies for comparison. Findings: There is anatomic alignment. No fracture, subluxation or dislocation. No soft tissue abnorm ality. No foreign bodies. Impression: 1: No significant bone or joint abnormality. Reviewed, dictated and finalized at location A. Impression: 1: No significant bone or joint abnormality.
--- NOTE | ~2024-08-09 | XR_ITS ---
Lumbosacral Spine: AP and lateral views Clinical History: Pain Findings: The normal lordotic curve is maintained. The vertebral bodies and posterior elements are i ntact. The intervertebral disc spaces are preserved. The sacroiliac joints are normally outlined. Impression: No significant abnormality. Reviewed, dictated and finalized at [facility]. Impression: No significant abnormality.
== END 2024-08-09 11:20 | disposition home or self-care (01) ==
PROVIDERS: PCP Family Medicine; Visit Provider Nurse Practitioner Adult Health
DX: M54.50 Low back pain, unspecified (principal); R53.83 Other fatigue; M54.10 Radiculopathy, site unspecified
CPT/HCPCS: 72100; 73521